=== PATIENT | female | born 1940 | race Caucasian/White ===

== ENCOUNTER 2024-03-13 14:17 | Inpatient (IN) ==
--- NOTE | 2024-03-13 15:06 | Emergency Department Note ---
Impression & Plan Slurring of speech, Atrial fibrillation, permanent, Pneumonia ED Provider Note Provider: Ke Noonan MD DATE OF SERVICE: 03/13/2024 CHIEF COMPLAINT: Referred for [facility], unsteady, falls, slurred speech HISTORY OF PRESENT ILLNESS: Patient is a 83-year-old female history of A-fib with Watchman device in 2019, CKD, and diabetes on insulin presenting here via ambulance for [facility]. Patient states since February 24 she has been unsteady at times and has had some falls. Fell February 24 has had a fall 3-week or so since then and fell today while at [facility] onto her back. Denies striking her loss conscious. Denies head pain. Reports pain in the mid upper back region. Maybe a little bit of tingling in the legs but denies numbness or tingling in the arms or face. States he went to bed 9 PM last night well. Woke around 7:30 AM this morning and states she felt her speech was off and slurring words. Daughter also noticed. Has been having some back pain of the falls and with a new speech change went to [facility] for evaluation. Did have breakfast as well. Earlier today. No nausea vomiting, abdominal pain, chest pain, shortness of breath related. Denies fever or significant cough or cold symptoms. States right now maybe her speech is just ever so slightly off. Is on baby aspirin. For [facility] they are concerned she might of had a stroke and sent her here for evaluation. Daughter later arrived and confirms the majority of the story. Patient was did have a fall overnight had to pull her self. Daughter noted this morning that her speech was slurred and states it still seems somewhat slurred to her. PAST MEDICAL HISTORY: As noted above MEDICATIONS: Reviewed home medications SOCIAL HISTORY: Staying with daughter locally at this time PHYSICAL EXAM: GENERAL: alert and oriented in no acute distress on stretcher Head: normocephalic and atraumatic EYES: No injection, discharge or icterus. PERRL, EOMI. NECK: Trachea midline. Supple. ENT: Mucous membranes pink and moist. LUNGS: Airway patent. No retractions. Breath sounds clear anteriorly HEART: Irregular bradycardic rate and rhythm. No chest wall tenderness ABDOMEN: Soft and non-tender, without guarding or rebound. BACK: No midline tenderness of the lumbar spine or step-off. Some slight bilateral paraspinal mid thoracic tenderness. No significant contusions or crepitus appreciable. SKIN: Acyanotic, warm, dry, without rashes EXTREMITIES: Without swelling, tenderness or deformity NEUROLOGICAL: No focal deficits. No aphasia. No facial droop and tongue midline. Does have some mild slurred speech. Normal strength and tone in the extremities. Sensation to gross touch normal. EK bpm what appears to be slow A-fib. No clear acute ST segment elevation with some nonspecific T wave changes and QTc of 414. CONTINUOUS CARDIAC MONITORING: was ordered and showed a heart rate of 30s to 50s bpm in atrial fibrillation GCS 15. Patient's laboratory studies and imaging reviewed. Differential includes Infection, dehydration, metabolic abnormality, hypo/hyperglycemia, electrolyte disturbance, anemia, hypoxia, cardiac sources, intracerebral event/neurologic, traumatic injury, spinal pathology/infection/cauda equina, as well as other pathologies. IMPRESSION/MEDICAL DECISION MAKING: Patient well-appearing moving all extremities without facial droop here upon arrival. Maybe a little bit of slurred speech. Patient outside the window for thrombolytic as is been approximately 18 hours since her last known well. EKG shows slow A-fib and the patient states she has a history of similar. Denies syncope or fainting. Not hypotensive. Blood work sent. Do question she may have had a CVA. Question of the could be possible occult trauma as well she has had some falls recently. Reports some mid upper back pain. In addition to CT of the head and CT angiograms to look for any possible vascular abnormality or stroke or head bleed, will obtain CT of the chest abdomen pelvis to look for any possible occult rib or spinal fractures. Able to do straight leg raise okay and gross sensation intact lower extremities and I doubt cauda equina. Blood work here is minimal anemia hemoglobin 9.3. No significant cytosis. Normal platelet count. No significant acute renal dysfunction or electrolyte abnormality noted. CT per radiology shows no acute intracranial hemorrhage or disease process by report. They do note multifocal stenoses at the origin left vertebral artery, bilateral V4 segments, and bilateral cavernous portion of the internal arteries favored to be chronic with a high-grade stenosis of the left MCA likely chronic. Did discuss with telestroke from [facility] who agrees with the plan for an MRI brain but no other acute intervention at this time. CT of the chest and abdomen pelvis per ideology report questions right middle and lower lobe pneumonia without effusion. Possibly some esophagitis. No significant retroperitoneal or traumatic injuries otherwise noted. Discussed with patient this finding. Will cover with ceftriaxone given the concern for pneumonia on the imaging. Has had a cough and some dyspnea on exertion according to daughter. Will bring to the hospital further care with this finding for possible stroke workup. Hospitalist team was consulted and patient agreeable with this plan. Negative COVID test. DIAGNOSIS: Falls, slurred speech/strokelike symptoms, permanent A-fib DISPOSITION: Hospitalist will evaluate Patient was agreeable with this plan. Past Med/Surg History Problem List (Updated 03/13/24 @ 21:15 by Ke Noonan M.D.) Pneumonia (Acute) Slurring of speech (Acute) 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 Mitral regurgitation Atrial fibrillation, permanent (Acute) Abnormal CT scan of lung Mixed hyperlipidemia Benign hypertension with CKD (chronic kidney disease) stage III CKD (chronic kidney disease) stage 3, GFR 30-59 ml/min Uncontrolled type 2 diabetes mellitus with hyperglycemia Medical History (Updated 03/13/24 @ 21:15 by Ke Noonan M.D.) Foot pain Dyspnea Pleural effusion Atrial fibrillation Surgical History No significant past surgical history Family History Other Family history non-contributory Social History Smoking Status: Never smoker Hx Alcohol Use: No Hx Substance Use: No Preferred Language: Citizen Of [place] Communication Ability: Effective Cleat Layer Required: No Beliefs That Will Affect Care: None Current Living Situation: Spouse Feels Safe at Home: Yes Safety Concerns: Feels Safe At This Time Assistive Devices: None Allergies Allergies Allergy/AdvReac Type Severity Reaction Status Date / Time ibuprofen Allergy Intermediate HANDS GO Verified 01/21/24 13:02 NUMB Penicillins Allergy Intermediate Rash Verified 01/21/24 13:02 Sulfa (Sulfonamide Allergy Unknown HAPPENED Verified 01/21/24 13:02 Antibiotics) A CHILD azithromycin AdvReac Mild Gastrointestinal Verified 01/21/24 13:02 Upset colestipol [From Colestid] AdvReac Mild "Couldn't Verified 01/21/24 13:02 Tolerate" doxycycline AdvReac Mild Gastrointestinal Verified 01/21/24 13:02 Upset ezetimibe [From Zetia] AdvReac Mild Gastrointestinal Verified 01/21/24 13:02 Upset terazosin [From Hytrin] AdvReac Mild Urinary Verified 01/21/24 13:02 Incontinence Home Meds Home Medications Medication Instructions Recorded Confirmed acetaminophen 500 mg tablet 500 - 1,000 mg PO Q6H PRN Pain 02/12/19 01/21/24 (Tylenol Extra Strength) aspirin 81 mg tablet,delayed 81 mg PO DAILY 02/01/21 01/21/24 release cholecalciferol (vitamin D3) PO DAILY 07/12/21 01/21/24 ascorbate calcium (vitamin C) 500 250 mg PO DAILY 09/12/21 01/21/24 mg tablet polaprezinc (zinc carnosine) PO BID 09/12/21 01/21/24 blood sugar diagnostic (Contour 11/09/22 01/21/24 Test Strips) pen needle, diabetic 32 gauge x 11/09/22 01/21/24/32" (BD Ultra-Fine Mery Pen Needle) Previous Rx's Medication Instructions Recorded omega-3 fatty acids-fish oil 340 1 cap PO BID #60 caps 02/01/21 mg-1,000 mg capsule (Fish Oil) flash glucose scanning reader #1 ea 06/27/21 (FreeStyle Samantha 2 [place]) losartan 100 mg tablet 100 mg PO DAILY #90 tabs 04/01/23 insulin glargine 100 unit/mL (3 40 unit (0.4 mL) subcut QPM #45 mL 09/26/23 mL) subcutaneous pen (Lantus Solostar U-100 Insulin) flash glucose sensor (FreeStyle #2 ea 11/18/23 Samantha 2 Sensor kit) insulin lispro 100 unit/mL 32 unit (0.32 mL) subcut DAILY #15 01/29/24 subcutaneous pen (Humalog KwikPen mL (U-100) Insulin) Results & Data (ED) Vital Signs Vital Signs - 24 hr 03/13/24 14:34 03/13/24 14:34 03/13/24 14:34 Temperature 36.9 C Temperature Source Oral Pulse Rate 42 L Pulse Rate [Apical] 42 L Pulse Rate from SpO2 Sensor Pulse Rhythm Regular Pulse Rhythm [Apical] Regular Pulse Strength Normal Pulse Strength [Apical] Normal Respiratory Rate 17 17 Respiratory Effort / Characteristics Non-Labored Non-Labored Respiratory Depth Normal Normal Respiratory Pattern Regular Regular Blood Pressure 197/61 H Blood Pressure [Right Arm] 197/61 H Blood Pressure Mean 106 Blood Pressure Mean [Right Arm] 106 Blood Pressure Position [Right Arm] Lying Pulse Oximetry 98 98 Oxygen Delivery Method Room Air Room Air Room Air Sepsis Recent Fever Within 48 Hours No Sepsis New/Unexplained Change in Mental Status No Sepsis Action Taken by Nursing No Action Required 03/13/24 14:38 03/13/24 15:27 03/13/24 16:42 Temperature Temperature Source Pulse Rate 42 L 43 L 45 L Pulse Rate [Apical] Pulse Rate from SpO2 Sensor 41 L 44 L Pulse Rhythm Pulse Rhythm [Apical] Pulse Strength Pulse Strength [Apical] Respiratory Rate 18 18 Respiratory Effort / Characteristics Respiratory Depth Respiratory Pattern Blood Pressure Blood Pressure [Right Arm] Blood Pressure Mean Blood Pressure Mean [Right Arm] Blood Pressure Position [Right Arm] Pulse Oximetry 100 98 Oxygen Delivery Method Room Air Sepsis Recent Fever Within 48 Hours Sepsis New/Unexplained Change in Mental Status Sepsis Action Taken by Nursing 03/13/24 17:12 Temperature Temperature Source Pulse Rate 53 L Pulse Rate [Apical] Pulse Rate from SpO2 Sensor 52 L Pulse Rhythm Pulse Rhythm [Apical] Pulse Strength Pulse Strength [Apical] Respiratory Rate 24 Respiratory Effort / Characteristics Respiratory Depth Respiratory Pattern Blood Pressure 122/91 Blood Pressure [Right Arm] Blood Pressure Mean 101 Blood Pressure Mean [Right Arm] Blood Pressure Position [Right Arm] Pulse Oximetry 98 Oxygen Delivery Method Room Air Sepsis Recent Fever Within 48 Hours Sepsis New/Unexplained Change in Mental Status Sepsis Action Taken by Nursing Laboratory Data 03/13/24 Unknown 03/13/24 Unknown Lab Results 03/13/24 03/13/24 03/13/24 Range/Units 15:18 16:31 17:05 POC Hgb 11.6 L (12.0-16.0) g/dl POC Hct 34 L (37-47) % POC Sodium 143 (135-144) mmol/L POC Potassium 3.5 (3.3-5.0) mmol/L Potassium 3.8 (3.5-5.1) mmol/L POC Chloride 109 (101-112) mmol/L POC Total CO2 22 L (24-31) mmol/L POC Anion Gap 16.0 (16-25) mmol/L POC BUN 27 H (7-18) mg/dl POC Creatinine 1.2 (0.6-1.3) mg/dl POC Glucose (other) 68 L* (70-99) mg/dl POC Ioniz Calcium Snehal 1.20 (1.12-1.32) mmol/l AST 77 H (13-39) U/L Troponin I High Sens 21.0 H (0-14) pg/ml SARS-CoV-2, RNA, NAAT NEGATIVE (NEGATIVE) Administered Medications Labetalol HCl (Labetalol Hcl Iv 5 Mg/Ml 20ml) 10 mg IV Q30M PRN PRN Reason: SBP >220 or DBP >120 mmHg Stop: 04/12/24 19:59 Last Admin: 03/13/24 20:47 Dose: 10 mg Documented By: MMD Discontinued Medications Ceftriaxone Sodium (Rocephin) 2,000 mg in 50 mls @ 100 mls/hr IV NOW STA Stop: 03/13/24 17:23 Last Infusion: 03/13/24 18:26 Dose: Infused Documented By: Admin: 03/13/24 17:36 Dose: 100 mls/hr Documented By: [facility] Cefepime HCl (Maxipime 2000mg) 2,000 mg in 20 mls @ 5 mls/min IV NOW STA; Protocol Stop: 03/13/24 17:30 Last Admin: 03/13/24 18:03 Dose: Not Given Documented By: [facility] Vancomycin HCl 1,250 mg/ (Sodium Chloride) 525 mls @ 200 mls/hr IV NOW ONE Stop: 03/13/24 20:04 Last Admin: 03/13/24 18:03 Dose: Not Given Documented By: [facility] Ioversol (Optiray 320 125ml) 94 ml IV ONCE ONE Stop: 03/13/24 15:45 Last Admin: 03/13/24 15:45 Dose: 94 ml Documented By: EDK Imaging Data Radiologist's Impression: Abdomen/Pelvis CT 03/13/24 14:57 CT OF THE ABDOMEN AND PELVIS WITH CONTRAST CLINICAL HISTORY: Weak, falls, back pain. COMPARISON STUDY: Renal ultrasound March 22, 2022. TECHNIQUE: Following IV administration of 94 mL of Optiray, axial images of the abdomen and pelvis were obtained from the lung bases to the proximal femurs. Images were reviewed in the axial, sagittal, and coronal planes. IV contrast was administered without complication. Automated exposure control was utilized for the study. A dose lowering technique was utilized adhering to the principles of ALARA. FINDINGS: Alveolar opacities within the right middle lobe and right lower lobe are present. No hemoperitoneum or pneumoperitoneum is present. There is no evidence for hepatic injury to the liver, spleen, adrenal glands, kidneys or pancreas. There is no biliary or pancreatic ductal dilatation. There are gallstones within the gallbladder. No evidence for acute cholecystitis. Low- attenuation bilateral renal lesions favor cysts. Hypodensities within the right renal collecting system favor small calculi although excreted contrast could appear similar. There is no hydronephrosis. There are no ureteral calculi. The caliber and wall thickness of small and large bowel are normal. The bladder is distended. No acute lumbar spine, pelvic or hip fractures are identified. IMPRESSION: 1. No acute traumatic findings within the abdomen or pelvis. 2. Right nephrolithiasis. No ureteral calculi. No hydronephrosis. 3. Cholelithiasis. No evidence for acute cholecystitis. ACT 112: Negative or not required by law. Electronically signed by: Acosta Valdez M.D. 03/13/2024 4:[address] 03/13/24 14:[address] WITH CONTRAST HISTORY: Acute chest trauma status post fall weak , falls back pain, flurred speech TECHNIQUE: Multiaxial CT images of the chest were performed following the IV administration of 94 cc of Optiray. A dose lowering technique was utilized adhering to the principles of ALARA. COMPARISON: CT abdomen and pelvis of same day, chest CT 04/24/2021, 04/06/2021 FINDINGS: Unremarkable thyroid. Mildly enlarged mediastinal lymph nodes measuring up to 11 mm of increase in size from prior. Mild cardiomegaly. No pericardial effusion. Left atrial exclusion device. Extensive coronary artery calcifications. Atherosclerosis of the aorta. 50% stenosis at the origin of the left subclavian artery has progressed. Dilation of the pulmonary artery suggestive of pulmonary arterial hypertension. History of the right rotator cuff musculature compatible with chronic insertional tendon tearing. Otherwise unremarkable soft tissues. No pneumothorax, pleural effusion or overt pulmonary edema. Patchy groundglass and consolidative opacity within the right middle and lower lobes. Mild intralobular septal thickening. Central airways are patent. Nonspecific mid to distal esophageal wall thickening. No acute fracture. Subcentimeter loose bodies of the right glenohumeral joint. IMPRESSION: 1. Mild patchy right middle and lower lobe opacities compatible with bronchopneumonia. 2. Nonspecific mediastinal lymphadenopathy. Attention on follow-up recommended. 3. No pleural effusion. 4. Nonspecific mid to distal esophageal wall thickening. Correlate clinically to exclude esophagitis. ACT 112: Negative or not required by law. Electronically signed by: Casa Tee M.D. 03/13/2024 4:[address] 03/13/24 14:57 CT angio neck with con, CT head/brain wo con, CT angio head w con CLINICAL HISTORY: neuro deficit, acute stroke suspected TECHNIQUE: Contiguous axial CT images of the head were acquired from the base of the skull to the vertex without intravenous contrast administration. CT angiography of the head and neck was performed following intravenous administration of iodinated contrast. Coronal and sagittal MIPS were obtained from the axial data set and were submitted for review. Automated dose lowering techniques and/or adjustment according to patient size were utilized for this examination. All measurements were calculated based on NASCET criteria. CT DOSE: 2371.19 mGy.cm Comparison: None available at the time of this dictation. FINDINGS: CT head: Areas of decreased attenuation are present in the periventricular and subcortical white matter bilaterally consistent with small vessel ischemic disease. Generalized cerebral atrophy with commensurate enlargement of the ventricles, sulci, and cisterns is also present. There is no acute intracranial hemorrhage or evidence of acute territorial infarction. No shift of the midline structures, mass effect, or extra-axial abnormalities are shown. Atherosclerotic calcifications are present in the intracranial segments of the internal carotid arteries. Mediastinal lymph nodes measure up to 13 mm. CTA Neck: A 3 vessel aortic arch is shown. There is no significant atherosclerotic plaque in the aortic arch or the origins of the innominate, left common carotid, and left subclavian arteries. There is stenosis of proximal the 75% at the origin of the left vertebral artery as well as greater than 75% stenosis of the V4 segment. There is approximately 75% stenosis of the V4 segment the left. There is greater than 75% stenosis of the bilateral internal carotid arteries at the cavernous segment. The left vertebral artery is dominant. CTA Head: The anterior and posterior cerebral circulations are patent. There is high-grade stenosis of the origin of the left middle cerebral artery. There is likely nonhemodynamically significant stenosis of the left posterior cerebral artery. IMPRESSION: 1. No acute intracranial hemorrhage, evidence of acute territorial infarction, or other acute intracranial disease process. 2. Multifocal hemodynamically significant stenoses at the origin of the left vertebral artery, bilateral V4 segments, and bilateral cavernous portion of the internal carotid arteries. These are favored to be chronic. 3. High-grade stenosis of the origin of the left middle cerebral artery. This is likely chronic. Assessment of stenosis of the internal carotid arteries is based on NASCET criteria. ACT 112: Negative or not required by law. Electronically signed by: Dayron Hannah M.D. 03/13/2024 4:03 PM Head CTA 03/13/24 14:57 CT angio neck with con, CT head/brain wo con, CT angio head w con CLINICAL HISTORY: neuro deficit, acute stroke suspected TECHNIQUE: Contiguous axial CT images of the head were acquired from the base of the skull to the vertex without intravenous contrast administration. CT angiography of the head and neck was performed following intravenous administration of iodinated contrast. Coronal and sagittal MIPS were obtained from the axial data set and were submitted for review. Automated dose lowering techniques and/or adjustment according to patient size were utilized for this examination. All measurements were calculated based on NASCET criteria. CT DOSE: 2371.19 mGy.cm Comparison: None available at the time of this dictation. FINDINGS: CT head: Areas of decreased attenuation are present in the periventricular and subcortical white matter bilaterally consistent with small vessel ischemic disease. Generalized cerebral atrophy with commensurate enlargement of the ventricles, sulci, and cisterns is also present. There is no acute intracranial hemorrhage or evidence of acute territorial infarction. No shift of the midline structures, mass effect, or extra-axial abnormalities are shown. Atherosclerotic calcifications are present in the intracranial segments of the internal carotid arteries. Mediastinal lymph nodes measure up to 13 mm. CTA Neck: A 3 vessel aortic arch is shown. There is no significant atherosclerotic plaque in the aortic arch or the origins of the innominate, left common carotid, and left subclavian arteries. There is stenosis of proximal the 75% at the origin of the left vertebral artery as well as greater than 75% stenosis of the V4 segment. There is approximately 75% stenosis of the V4 segment the left. There is greater than 75% stenosis of the bilateral internal carotid arteries at the cavernous segment. The left vertebral artery is dominant. CTA Head: The anterior and posterior cerebral circulations are patent. There is high-grade stenosis of the origin of the left middle cerebral artery. There is likely nonhemodynamically significant stenosis of the left posterior cerebral artery. IMPRESSION: 1. No acute intracranial hemorrhage, evidence of acute territorial infarction, or other acute intracranial disease process. 2. Multifocal hemodynamically significant stenoses at the origin of the left vertebral artery, bilateral V4 segments, and bilateral cavernous portion of the internal carotid arteries. These are favored to be chronic. 3. High-grade stenosis of the origin of the left middle cerebral artery. This is likely chronic. Assessment of stenosis of the internal carotid arteries is based on NASCET criteria. ACT 112: Negative or not required by law. Electronically signed by: Dayron Hannah M.D. 03/13/2024 4:03 PM Neck CTA 03/13/24 14:57 CT angio neck with con, CT head/brain wo con, CT angio head w con CLINICAL HISTORY: neuro deficit, acute stroke suspected TECHNIQUE: Contiguous axial CT images of the head were acquired from the base of the skull to the vertex without intravenous contrast administration. CT angiography of the head and neck was performed following intravenous administration of iodinated contrast. Coronal and sagittal MIPS were obtained from the axial data set and were submitted for review. Automated dose lowering techniques and/or adjustment according to patient size were utilized for this examination. All measurements were calculated based on NASCET criteria. CT DOSE: 2371.19 mGy.cm Comparison: None available at the time of this dictation. FINDINGS: CT head: Areas of decreased attenuation are present in the periventricular and subcortical white matter bilaterally consistent with small vessel ischemic disease. Generalized cerebral atrophy with commensurate enlargement of the ventricles, sulci, and cisterns is also present. There is no acute intracranial hemorrhage or evidence of acute territorial infarction. No shift of the midline structures, mass effect, or extra-axial abnormalities are shown. Atherosclerotic calcifications are present in the intracranial segments of the internal carotid arteries. Mediastinal lymph nodes measure up to 13 mm. CTA Neck: A 3 vessel aortic arch is shown. There is no significant atherosclerotic plaque in the aortic arch or the origins of the innominate, left common carotid, and left subclavian arteries. There is stenosis of proximal the 75% at the origin of the left vertebral artery as well as greater than 75% stenosis of the V4 segment. There is approximately 75% stenosis of the V4 segment the left. There is greater than 75% stenosis of the bilateral internal carotid arteries at the cavernous segment. The left vertebral artery is dominant. CTA Head: The anterior and posterior cerebral circulations are patent. There is high-grade stenosis of the origin of the left middle cerebral artery. There is likely nonhemodynamically significant stenosis of the left posterior cerebral artery. IMPRESSION: 1. No acute intracranial hemorrhage, evidence of acute territorial infarction, or other acute intracranial disease process. 2. Multifocal hemodynamically significant stenoses at the origin of the left vertebral artery, bilateral V4 segments, and bilateral cavernous portion of the internal carotid arteries. These are favored to be chronic. 3. High-grade stenosis of the origin of the left middle cerebral artery. This is likely chronic. Assessment of stenosis of the internal carotid arteries is based on NASCET criteria. ACT 112: Negative or not required by law. Electronically signed by: Dayron Hannah M.D. 03/13/2024 4:03 PM Discharge Plan Visit Data Chief Complaint: Neuro Symptoms/Deficit Stated Complaint: GLF, speech changes ED Provider: Ke Noonan Discharge Problem: Slurring of speech, Atrial fibrillation, permanent, Pneumonia Patient Disposition: Admitted As Inpatient Discharge Instructions Interventions: ED Discharge Assessment Last Done: 03/13/24 18:17
[2024-03-13 15:40] LABS: iSTAT Creatinine 1.2 mg/dl (0.6-1.3); iSTAT Hemoglobin 11.6 g/dl (12.0-16.0); iSTAT Ionized Calcium 1.2 mmol/l (1.12-1.32); iSTAT Potassium 3.5 mmol/L (3.3-5.0)
[2024-03-13 15:43] LABS: Basophils # (auto) 0.04 K/uL (0.00-0.20); Basophils % (auto) 0.6 %; Eosinophils # (auto) 0.31 K/uL (0.00-0.50); Eosinophils % (auto) 4.7 %; Hemoglobin 11.3 g/dl (12.0-16.0); Immature Granulocytes # (auto) 0.03 K/uL (0.01-0.20); Immature Granulocytes % (auto) 0.5 %; Lymphocytes # (auto) 1.25 K/uL (1.20-3.40); Lymphocytes % (auto) 18.8 %; Mean Corpuscular Hemoglobin 27.8 pg (25.0-34.0); Mean Corpuscular Hgb Conc 33.2 g/dL (32.0-36.0); Mean Corpuscular Volume 83.5 fL (80.0-100.0); Mean Platelet Volume 9.9 fL (9.4-12.4); Monocytes # (auto) 0.61 K/uL (0.11-0.59); Monocytes % (auto) 9.2 %; Neutrophils % (auto) 66.2 %; Platelet Count 233 K/uL (130-400); RDW Coefficient of Variation 13.5 % (11.5-14.5); RDW Standard Deviation 41.1 fL (36.4-46.3); Red Blood Count 4.07 M/uL (4.20-5.40); White Blood Count 6.64 K/ul (4.8-10.8)
[2024-03-13] MEDS: OPTIRAY 320 125ml IV ONE (15:45)
[2024-03-13 15:57] LABS: INR 1.1 (0.9-1.1); Partial Thromboplastin Time 26 Seconds (21-31); Prothrombin Time 11.5 Seconds (9.0-12.0)
--- NOTE | 2024-03-13 16:04 | CT Scan Report ---
CT OF THE ABDOMEN AND PELVIS WITH CONTRAST CLINICAL HISTORY: Weak, falls, back pain. COMPARISON STUDY: Renal ultrasound March 22, 2022. TECHNIQUE: Following IV administration of 94 mL of Optiray, axial images of the abdomen and pelvis we re obtained from the lung bases to the proximal femurs. Images were reviewed in the axial, sagittal, and coronal planes. IV contrast was administered without complication. Automated exposure control wa s utilized for the study. A dose lowering technique was utilized adhering to the principles of ALARA . FINDINGS: Alveolar opacities within the right middle lobe and right lower lobe are present. No hemope ritoneum or pneumoperitoneum is present. There is no evidence for hepatic injury to the liver, spleen , adrenal glands, kidneys or pancreas. There is no biliary or pancreatic ductal dilatation. There are gallstones within the gallbladder. No evidence for acute cholecystitis. Low-attenuation bilateral re nal lesions favor cysts. Hypodensities within the right renal collecting system favor small calculi a lthough excreted contrast could appear similar. There is no hydronephrosis. There are no ureteral milvia culi. The caliber and wall thickness of small and large bowel are normal. The bladder is distended. N o acute lumbar spine, pelvic or hip fractures are identified. IMPRESSION: 1. No acute traumatic findings within the abdomen or pelvis. 2. Right nephrolithiasis. No ureteral calculi. No hydronephrosis. 3. Cholelithiasis. No evidence for acute cholecystitis. ACT 112: Negative or not required by law. Electronically signed by: Acosta Valdez M.D. 03/13/2024 4:02 PM
--- NOTE | 2024-03-13 16:04 | CT Scan Report ---
CHEST CT WITH CONTRAST HISTORY: Acute chest trauma status post fall weak , falls back pain, flurred speech TECHNIQUE: Multiaxial CT images of the chest were performed following the IV administration of 94 cc of Optiray. A dose lowering technique was utilized adhering to the principles of ALARA. COMPARISON: CT abdomen and pelvis of same day, chest CT 04/24/2021, 04/06/2021 FINDINGS: Unremarkable thyroid. Mildly enlarged mediastinal lymph nodes measuring up to 11 mm of incr ease in size from prior. Mild cardiomegaly. No pericardial effusion. Left atrial exclusion device. Ex tensive coronary artery calcifications. Atherosclerosis of the aorta. 50% stenosis at the origin of t he left subclavian artery has progressed. Dilation of the pulmonary artery suggestive of pulmonary ar terial hypertension. History of the right rotator cuff musculature compatible with chronic insertional tendon tearing. Oth erwise unremarkable soft tissues. No pneumothorax, pleural effusion or overt pulmonary edema. Patchy groundglass and consolidative opacity within the right middle and lower lobes. Mild intralobular sept al thickening. Central airways are patent. Nonspecific mid to distal esophageal wall thickening. No a cute fracture. Subcentimeter loose bodies of the right glenohumeral joint. IMPRESSION: 1. Mild patchy right middle and lower lobe opacities compatible with bronchopneumonia. 2. Nonspecific mediastinal lymphadenopathy. Attention on follow-up recommended. 3. No pleural effusion. 4. Nonspecific mid to distal esophageal wall thickening. Correlate clinically to exclude esophagitis. ACT 112: Negative or not required by law. Electronically signed by: Casa Tee M.D. 03/13/2024 4:03 PM
--- NOTE | 2024-03-13 16:05 | CT Scan Report ---
CT angio neck with con, CT head/brain wo con, CT angio head w con CLINICAL HISTORY: neuro deficit, acute stroke suspected TECHNIQUE: Contiguous axial CT images of the head were acquired from the base of the skull to the alo aaron without intravenous contrast administration. CT angiography of the head and neck was performed f ollowing intravenous administration of iodinated contrast. Coronal and sagittal MIPS were obtained fr om the axial data set and were submitted for review. Automated dose lowering techniques and/or adjus tment according to patient size were utilized for this examination. All measurements were calculated based on NASCET criteria. CT DOSE: 2371.19 mGy.cm Comparison: None available at the time of this dictation. FINDINGS: CT head: Areas of decreased attenuation are present in the periventricular and subcortical white jus er bilaterally consistent with small vessel ischemic disease. Generalized cerebral atrophy with comme nsurate enlargement of the ventricles, sulci, and cisterns is also present. There is no acute intracr anial hemorrhage or evidence of acute territorial infarction. No shift of the midline structures, mas s effect, or extra-axial abnormalities are shown. Atherosclerotic calcifications are present in the intracranial segments of the internal carotid arteries. Mediastinal lymph nodes measure up to 13 mm. CTA Neck: A 3 vessel aortic arch is shown. There is no significant atherosclerotic plaque in the aor tic arch or the origins of the innominate, left common carotid, and left subclavian arteries. There is stenosis of proximal the 75% at the origin of the left vertebral artery as well as greater than 75 % stenosis of the V4 segment. There is approximately 75% stenosis of the V4 segment the left. There i s greater than 75% stenosis of the bilateral internal carotid arteries at the cavernous segment. The left vertebral artery is dominant. CTA Head: The anterior and posterior cerebral circulations are patent. There is high-grade stenosis of the origin of the left middle cerebral artery. There is likely nonhemodynamically significant sten osis of the left posterior cerebral artery. IMPRESSION: 1. No acute intracranial hemorrhage, evidence of acute territorial infarction, or other acute intrac ranial disease process. 2. Multifocal hemodynamically significant stenoses at the origin of the left vertebral artery, bilat eral V4 segments, and bilateral cavernous portion of the internal carotid arteries. These are favored to be chronic. 3. High-grade stenosis of the origin of the left middle cerebral artery. This is likely chronic. Assessment of stenosis of the internal carotid arteries is based on NASCET criteria. ACT 112: Negative or not required by law. Electronically signed by: Dayron Hannah M.D. 03/13/2024 4:03 PM
[2024-03-13 16:06] LABS: Alanine Aminotransferase 24 U/L (7-52); Alkaline Phosphatase 88 U/L (34-104); Anion Gap 8 (3-11); BUN Creatinine Ratio 21.9 (10-20); Bilirubin,Total 0.4 mg/dl (0.2-1.0); Blood Urea Nitrogen 25 mg/dl (6-23); Calcium 9.5 mg/dl (8.6-10.3); Carbon Dioxide 24 mmol/L (21-32); Chloride 109 mmol/L (98-107); Glucose 64 mg/dl (70-99(Fasting)); Magnesium 1.7 mg/dl (1.7-2.4); Sodium 141 mmol/L (136-145); Troponin I High Sensitivity 23.1 pg/ml (0-14)
[2024-03-13] MEDS ORDERED: VANCOMYCIN CONSULT ACTIVE PRN (17:27)
--- NOTE | 2024-03-13 17:27 | History & Physical Report ---
Date of Service March 13, 2024 Assessment & Plan (1) Acute CVA (cerebrovascular accident): Plan: Add clopidogrel Continue aspirin NIH scores Allow permissive hypertension, losartan placed on hold, Labetalol PRN for sBP > 220, dBP > 120 TTE with bubble study Lipid panel and HbA1C with AM labs Prior history of statin myopathy Consult neurology (2) Pneumonia: Plan: Initially suspected to have pneumonia base on CT findings however minimal consolidation, normal WBC and procalcitonin and in setting of CVA suspect this is just aspiration pneumonitis due to her recent CVA Duonebs PRN for wheezing (no history of asthma/COPD) Further antibiotics deferred pending clinical course Aspiration precautions SLT consult (3) Slurring of speech: Plan: Not clearly stroke related as mouth is very dry Appears to have resolved irregardless (4) Recurrent falls: Plan: Appears to be a result of loss of balance - PT/OT assessments (5) Atrial fibrillation, permanent: Plan: Not on anticoagulation due to left atrial appendage device Rate controlled without AV rubio blocking agents (6) Uncontrolled type 2 diabetes mellitus with hyperglycemia: Plan: HbA1C 10.2 in August 2023, repeat with AM labs Given reduced appetite, current low normal glucose and inpatient setting will reduce Lantus to 10 units HS (44 units as outpatient) Novolog: --Goal BSG Range: Low 110 mg/dL, High 140 mg/dL --Correction Factor: 45 mg/dL/unit --Carbohydrate ratio = 15 g/unit --BSGs ACHS if eating, q6h if npo Plan VTE Prophylaxis - heparin 5000 units SQ BID Diet - T2DM, heart healthy Disposition - admit to PCU Admission and Anticipated Discharge Date Admission Date: March 13, 2024 History of Present Illness Chief Complaint: Slurred speech Recurrent falls Primary Care Provider: Brad Robles MD Anna Stark is an 83 year old female who presents to the ER with slurred speech. She reports her symptoms really started on February 24 and has been generally feeling not her normal self since then but difficult for her to say what is wrong. She notes she fell on that day and her was there to pick her up. She feels she is falling as she is losing her balance. No chest pain, shortness of breath or dizziness prior to falling. [place] and was transported here by her daughter for her upcoming birthday. Her daughter notes she fell at her house 2 days ago at 4am in the morning but was able to get herself up but fell again at [facility] yesterday. She notes upper right back pain since her initial fall on February 24. She is unclear on the time line but has also been short of breath and wheezing for the last 5 days. She denies any history of asthma, COPD or requiring inhalers in the past. No fever, chills, nasal congestion or sinus pain. Associated mild non productive cough. She denies coughing or choking after eating but had a coughing spell after drinking water from a straw when being seen. She has a very dry mouth on exam and notes this has been present since yesterday but she feels she is eating and drinking normally. No one sided weakness, change in sensation, vision or hearing. Her daughter noticed some slurred, garbled speech this morning which promted visit to [facility] and referral to the ER. Prior to these recent falls she falls 1-2 times a year and uses no aids for ambulation at baseline. She denies any prior stroke or heart attack but has uncontrolled diabetes, peripheral artery disease and hypertension. Allergies Allergy/AdvReac Type Severity Reaction Status Date / Time ibuprofen Allergy Intermediate HANDS GO Verified 01/21/24 13:02 NUMB Penicillins Allergy Intermediate Rash Verified 01/21/24 13:02 Sulfa (Sulfonamide Allergy Unknown HAPPENED Verified 01/21/24 13:02 Antibiotics) A CHILD azithromycin AdvReac Mild Gastrointestinal Verified 01/21/24 13:02 Upset colestipol [From Colestid] AdvReac Mild "Couldn't Verified 01/21/24 13:02 Tolerate" doxycycline AdvReac Mild Gastrointestinal Verified 01/21/24 13:02 Upset ezetimibe [From Zetia] AdvReac Mild Gastrointestinal Verified 01/21/24 13:02 Upset terazosin [From Hytrin] AdvReac Mild Urinary Verified 01/21/24 13:02 Incontinence Home Medications Medication Instructions Recorded Confirmed Type acetaminophen 500 mg tablet 500 - 1,000 mg PO Q6H PRN Pain 02/12/19 03/13/24 History (Tylenol Extra Strength) aspirin 81 mg tablet,delayed 81 mg PO DAILY 02/01/21 03/13/24 History release omega-3 fatty acids-fish oil 340 1 cap PO BID #60 caps 02/01/21 03/13/24 Rx mg-1,000 mg capsule (Fish Oil) flash glucose scanning reader #1 ea 06/27/21 01/21/24 Rx (FreeStyle Samantha 2 [place]) cholecalciferol (vitamin D3) 1,000 unit PO DAILY 07/12/21 03/13/24 History ascorbate calcium (vitamin C) 500 250 mg PO DAILY 09/12/21 03/13/24 History mg tablet polaprezinc (zinc carnosine) 1 tab PO BID 09/12/21 03/13/24 History blood sugar diagnostic (Contour 11/09/22 01/21/24 History Test Strips) pen needle, diabetic 32 gauge x 11/09/22 01/21/24 History 32" (BD Ultra-Fine Mery Pen Needle) losartan 100 mg tablet 100 mg PO DAILY #90 tabs 04/01/23 03/13/24 Rx flash glucose sensor (FreeStyle #2 ea 11/18/23 01/21/24 Rx Samantha 2 Sensor kit) insulin glargine 100 unit/mL (3 44 unit subcut QPM 03/13/24 03/13/24 History mL) subcutaneous pen (Lantus Solostar U-100 Insulin) insulin lispro 100 unit/mL 20 unit subcut BID 03/13/24 03/13/24 History subcutaneous pen (Humalog KwikPen (U-100) Insulin) Past Med/Surg History Problem List (Updated 03/14/24 @ 06:34 by Michele Kwan MD) Recurrent falls Acute CVA (cerebrovascular accident) Pneumonia (Acute) Slurring of speech (Acute) 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 Mitral regurgitation Atrial fibrillation, permanent (Acute) Abnormal CT scan of lung Mixed hyperlipidemia Benign hypertension with CKD (chronic kidney disease) stage III CKD (chronic kidney disease) stage 3, GFR 30-59 ml/min Uncontrolled type 2 diabetes mellitus with hyperglycemia Medical History (Updated 03/14/24 @ 06:34 by Michele Kwan MD) Foot pain Dyspnea Pleural effusion Atrial fibrillation Surgical History No significant past surgical history Family History Other Family history non-contributory Social History Smoking Status: Never smoker Hx Alcohol Use: No Hx Substance Use: No Preferred Language: Greek Communication Ability: Effective 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 Beliefs That Will Affect Care: None Current Living Situation: Spouse Feels Safe at Home: Yes Safety Concerns: Feels Safe At This Time Assistive Devices: None Review of Systems Review of Systems: All systems reviewed & are unremarkable except as noted in HPI & below Physical Exam Constitutional: WD/WN, vitals as above Eyes: PERRL, conjunctivae normal, anicteric sclerae ENMT: Mouth: + dry oral mucous membranes Respiratory: normal respiratory effort; no respiratory distress Auscultation: + crackles (coarse bibasal) and + wheezes (mild expiratory); breath sounds present, no diminished lung sounds, no rales and no rhonchi Cardiovascular: Rate/Rhythm: regular rate and + irregularly irregular Heart Sounds: no murmur Extremities: normal capillary refill; no calf tenderness and no pedal edema Gastrointestinal (Abdomen): normal bowel sounds, soft, nontender, no hepatosplenomegaly Musculoskeletal: no cyanosis or clubbing, extremities motor strength 5/5 Skin: no rashes, warm and dry Neurologic: moves all extremities and awake; no focal motor deficits and not confused Speech / Cognition: normal speech Motor/Sensory: + pronator drift (right, notable rotator cuff pathology on imaging this side); no tremor, normal movement and no sensory deficit Cranial Nerves: PERRL, EOM intact bilaterally, normal facial strength, tongue midline, able to rotate head bilaterally, able to elevate shoulders bilaterally, no nystagmus and symmetric p alate elevation Coordination: normal [id number] test (equal b/l) Psychiatric: A+Ox3, euthymic affect Genitourinary: no CVA tenderness Results & Data Results & Data Vital Signs (Past 12 Hours) Vital Signs Temp Pulse Pulse Resp BP BP Pulse Ox 03/13/24 16:42 45 L 18 98 03/13/24 15:27 43 L 18 100 03/13/24 14:38 42 L 03/13/24 14:34 42 L 17 197/61 H 98 03/13/24 14:34 03/13/24 14:34 36.9 C 42 L 17 197/61 H 98 O2 Del Method 03/13/24 16:42 03/13/24 15:27 Room Air 03/13/24 14:38 03/13/24 14:34 Room Air 03/13/24 14:34 Room Air 03/13/24 14:34 Room Air Laboratory Results Abnormal lab results 03/13/24 03/13/24 Range/Units 15:18 Unknown RBC 4.07 L (4.20-5.40) M/uL Hgb 11.3 L (12.0-16.0) g/dl POC Hgb 11.6 L (12.0-16.0) g/dl Hct 34.0 L (37.0-47.0) % POC Hct 34 L (37-47) % Sharp # (Auto) 0.61 H (0.11-0.59) K/uL Chloride 109 H (98-107) mmol/L POC Total CO2 22 L (24-31) mmol/L POC BUN 27 H (7-18) mg/dl BUN 25 H (6-23) mg/dl BUN/Creatinine Ratio 21.9 H (10-20) Glucose 64 L (70-99(Fasting)) mg/dl POC Glucose (other) 68 L* (70-99) mg/dl Troponin I High Sens 23.1 H (0-14) pg/ml Diagnostic Findings CT angio neck with con, CT head/brain wo con, CT angio head w con CLINICAL HISTORY: neuro deficit, acute stroke suspected TECHNIQUE: Contiguous axial CT images of the head were acquired from the base of the skull to the vertex without intravenous contrast administration. CT angiography of the head and neck was performed following intravenous administration of iodinated contrast. Coronal and sagittal MIPS were obtained from the axial data set and were submitted for review. Automated dose lowering techniques and/or adjustment according to patient size were utilized for this examination. All measurements were calculated based on NASCET criteria. CT DOSE: 2371.19 mGy.cm Comparison: None available at the time of this dictation. FINDINGS: CT head: Areas of decreased attenuation are present in the periventricular and subcortical white matter bilaterally consistent with small vessel ischemic disease. Generalized cerebral atrophy with commensurate enlargement of the ventricles, sulci, and cisterns is also present. There is no acute intracranial hemorrhage or evidence of acute territorial infarction. No shift of the midline structures, mass effect, or extra-axial abnormalities are shown. Atherosclerotic calcifications are present in the intracranial segments of the internal carotid arteries. Mediastinal lymph nodes measure up to 13 mm. CTA Neck: A 3 vessel aortic arch is shown. There is no significant atherosclerotic plaque in the aortic arch or the origins of the innominate, left common carotid, and left subclavian arteries. There is stenosis of proximal the 75% at the origin of the left vertebral artery as well as greater than 75% stenosis of the V4 segment. There is approximately 75% stenosis of the V4 segment the left. There is greater than 75% stenosis of the bilateral internal carotid arteries at the cavernous segment. The left vertebral artery is dominant. CTA Head: The anterior and posterior cerebral circulations are patent. There is high-grade stenosis of the origin of the left middle cerebral artery. There is likely nonhemodynamically significant stenosis of the left posterior cerebral artery. IMPRESSION: 1. No acute intracranial hemorrhage, evidence of acute territorial infarction, or other acute intracranial disease process. 2. Multifocal hemodynamically significant stenoses at the origin of the left vertebral artery, bilateral V4 segments, and bilateral cavernous portion of the internal carotid arteries. These are favored to be chronic. 3. High-grade stenosis of the origin of the left middle cerebral artery. This is likely chronic. CHEST CT WITH CONTRAST HISTORY: Acute chest trauma status post fall weak , falls back pain, flurred speech TECHNIQUE: Multiaxial CT images of the chest were performed following the IV administration of 94 cc of Optiray. A dose lowering technique was utilized adhering to the principles of ALARA. COMPARISON: CT abdomen and pelvis of same day, chest CT 04/24/2021, 04/06/2021 FINDINGS: Unremarkable thyroid. Mildly enlarged mediastinal lymph nodes measuring up to 11 mm of increase in size from prior. Mild cardiomegaly. No pericardial effusion. Left atrial exclusion device. Extensive coronary artery calcifications. Atherosclerosis of the aorta. 50% stenosis at the origin of the left subclavian artery has progressed. Dilation of the pulmonary artery s uggestive of pulmonary arterial hypertension. History of the right rotator cuff musculature compatible with chronic insertional tendon tearing. Otherwise unremarkable soft tissues. No pneumothorax, pleural effusion or overt pulmonary edema. Patchy groundglass and consolidative opacity within the right middle and lower lobes. Mild intralobular septal thickening. Central airways are patent. Nonspecific mid to distal esophageal wall thickening. No acute fracture. Subcentimeter loose bodies of the right glenohumeral joint. IMPRESSION: 1. Mild patchy right middle and lower lobe opacities compatible with bronchopneumonia. 2. Nonspecific mediastinal lymphadenopathy. Attention on follow-up recommended. 3. No pleural effusion. 4. Nonspecific mid to distal esophageal wall thickening. Correlate clinically to exclude esophagitis. CT OF THE ABDOMEN AND PELVIS WITH CONTRAST CLINICAL HISTORY: Weak, falls, back pain. COMPARISON STUDY: Renal ultrasound March 22, 2022. TECHNIQUE: Following IV administration of 94 mL of Optiray, axial images of the abdomen and pelvis were obtained from the lung bases to the proximal femurs. Images were reviewed in the axial, sagittal, and coronal planes. IV contrast was administered without complication. Automated exposure control was utilized for the study. A dose lowering technique was utilized adhering to the principles of ALARA. FINDINGS: Alveolar opacities within the right middle lobe and right lower lobe are present. No hemoperitoneum or pneumoperitoneum is present. There is no evidence for hepatic injury to the liver, spleen, adrenal glands, kidneys or pancreas. There is no biliary or pancreatic ductal dilatation. There are gallstones within the gallbladder. No evidence for acute cholecystitis. Low- attenuation bilateral renal lesions favor cysts. Hypodensities within the right renal collecting system favor small calculi although excreted contrast could appear similar. There is no hydronephrosis. There are no ureteral calculi. The caliber and wall thickness of small and large bowel are normal. The bladder is distended. No acute lumbar spine, pelvic or hip fractures are identified. IMPRESSION: 1. No acute traumatic findings within the abdomen or pelvis. 2. Right nephrolithiasis. No ureteral calculi. No hydronephrosis. 3. Cholelithiasis. No evidence for acute cholecystitis. Medications Administered ER Medications Given: Ceftriaxone 2g IV ECG Rate (beats per minute): 46 Rhythm: junctional Findings: no acute ischemic change Comparison ECG Date: from (April 06, 2021) Change: the following changes noted (junctional pacemaker replaced a. fib) Code Status & VTE Plan Code Status Full VTE Prophylaxis Plan VTE Prophylaxis will be ordered: Yes PG Care Time/CCT Total # of Minutes Spent Total Time Spent with Patient: Total time spent is greater than 50% in coordination of care (as documented) at patient's floor/unit and/or counseling patient: Coding Level of Care Code 95271 INT INP/OBS CARE 3/75MIN Diagnoses Acute CVA (cerebrovascular accident) I63.9 Pneumonia J18.9 Slurring of speech R47.81 Recurrent falls R29.6 Atrial fibrillation, permanent I48.21 Uncontrolled type 2 diabetes mellitus with hyperglycemia E11.65
[2024-03-13] MEDS: cefTRIAXone SODIUM 2,000 MG/50 ML BAG IV STA (17:36)
[2024-03-13 18:00] LABS: Appearance Urine Clear (Clear); Bacteria Urine Automated None Seen (None Seen); Bilirubin Urine Negative (Negative); Blood Urine Negative (Negative); Cast Urine Automated 0-2 /lpf (0-2); Color Urine Yellow; Epithelial Cell Urine Auto 0-2 /hpf (0-2); Glucose Urine UA Negative (Negative); Ketones Urine Negative (Negative); Leukocyte Esterase Urine Negative (Negative); Nitrite Urine Negative (Negative); Protein Urine 2+ (Negative); RBC Urine Automated 0-2 /hpf (0-2); Specific Gravity Urine > 1.045 (1.000-1.030); Urobilinogen Urine Negative (Negative)
[2024-03-13] MEDS: VANCOMYCIN HCL 1,250 MG in SODIUM CHLORIDE 0.9% 500 ML IV ONE (18:03)
[2024-03-13] MEDS: CEFEPIME 2000MG 2,000 MG/20 ML SYR IV STA (18:03)
[2024-03-13 18:47] LABS: Potassium 3.8 mmol/L (3.5-5.1)
[2024-03-13 18:47] LABS: Adenovirus PCR Not Detected (NotDetected); Bordetella parapertussis PCR Not Detected (NotDetected); Bordetella pertussis PCR Not Detected (NotDetected); Chlamydia pneumoniae PCR Not Detected (NotDetected); Coronavirus 229E PCR Not Detected (NotDetected); Coronavirus CoV-2 (COVID19)PCR Not Detected (NotDetected); Coronavirus HKU1 PCR Not Detected (NotDetected); Coronavirus NL63 PCR Not Detected (NotDetected); Coronavirus OC43PCR Not Detected (NotDetected); Human Metapneumovirus PCR Not Detected (NotDetected); Influenza A PCR Not Detected (NotDetected); Influenza B PCR Not Detected (NotDetected); Mycoplasma pneumoniae PCR Not Detected (NotDetected); Parainfluenza Virus 1 PCR Not Detected (NotDetected); Parainfluenza Virus 2 PCR Not Detected (NotDetected); Parainfluenza Virus 3 PCR Not Detected (NotDetected); Parainfluenza Virus 4 PCR Not Detected (NotDetected); Respiratory Syncytial VirusPCR Not Detected (NotDetected); Rhinovirus/Enterovirus PCR Not Detected (NotDetected)
[2024-03-13] MEDS ORDERED: PHARMACIST DISCHARGE MED REC CONSULT PRN (19:50)
[2024-03-13] MEDS: LABETALOL HCL IV 5 MG/ML 20ML IV PRN (20:47)
[2024-03-13] MEDS ORDERED: GLUCAGON FOR INJ 1 MG VIAL SQ PRN (21:37)
[2024-03-13] MEDS ORDERED: CARBOHYDRATES FOR HYPOGLYCEMIA PO PRN (21:37)
[2024-03-13] MEDS ORDERED: GLUCOSE 40% GEL 15 GM TUBE PO PRN (21:37)
[2024-03-13] MEDS ORDERED: DEXTROSE 50% 50 ML SYRINGE IV PRN (21:37)
[2024-03-13] MEDS ORDERED: GLUCOSE 10 TAB/TUBE PO PRN (21:37)
--- NOTE | 2024-03-13 21:57 | Magnetic Resonance Report ---
Exam(s): MRI HEAD Without Contrast EXAM: MR Head Without Intravenous Contrast CLINICAL HISTORY: Reason for exam: slurred speech ?CVA. TECHNIQUE: Magnetic resonance images of the head/brain without intravenous contrast in multiple planes. COMPARISON: CT brain: 03/13/2024 FINDINGS: Motion-induced image degradation. Brain: There is a 1.8 x 1.0 cm dumbbell-shaped acute infarction with restricted diffusion demonstrated in the dana (series 5 image 8). There is no intraparenchymal mass, mass-effect or midline shift noted. No abnormal extra-axial fluid collections are seen. The basal cisterns are patent. Age-related moderate cerebral atrophy with widening of the extra-axial spaces and ventricular dilatation. FLAIR imaging demonstrated minimal periventricular signal hyperintensity compatible with benign white matter changes of aging. Bones/joints: Unremarkable. No acute fracture. Sinuses: Mild/moderate bilateral chronic maxillary sinusitis. No acute sinusitis. Mastoid air cells: Unremarkable as visualized. No mastoid effusion. Orbits: Unremarkable as visualized.. IMPRESSION: Acute infarction of the dana. Chronic involutional changes of the brain. . Communications: Call Doctor Stroke Electronically signed by: Nikunj Haile MD, DABR 03/13/24 21:56 PM
[2024-03-13] MEDS: CLOPIDOGREL BISULFATE 300 MG TAB PO STA (22:33)
[2024-03-13] MEDS: HEPARIN SOD 5,000 UNIT/0.5 ML VIAL SQ SCH (22:34)
[2024-03-13] MEDS: LANTUS PER UNIT CHARGE SQ SCH (22:39)
[2024-03-13] MEDS: LACTATED RINGER'S 1,000 ML IV SCH (22:53)
[2024-03-14] MEDS: ALBUT/IPRATROP 3MG/0.5MG NEB 3 ML VIAL NEB PRN (00:09)
[2024-03-14 06:11] LABS: Basophils # (auto) 0.02 K/uL (0.00-0.20); Basophils % (auto) 0.2 %; Eosinophils # (auto) 0.12 K/uL (0.00-0.50); Eosinophils % (auto) 1.3 %; Hematocrit (blood only) 28.9 % (37.0-47.0); Hemoglobin 9.8 g/dl (12.0-16.0); Immature Granulocytes # (auto) 0.05 K/uL (0.01-0.20); Immature Granulocytes % (auto) 0.5 %; Lymphocytes # (auto) 1.17 K/uL (1.20-3.40); Lymphocytes % (auto) 12.4 %; Mean Corpuscular Hemoglobin 27.8 pg (25.0-34.0); Mean Corpuscular Hgb Conc 33.9 g/dL (32.0-36.0); Mean Corpuscular Volume 81.9 fL (80.0-100.0); Mean Platelet Volume 9.6 fL (9.4-12.4); Monocytes # (auto) 0.82 K/uL (0.11-0.59); Monocytes % (auto) 8.7 %; Neutrophils # (auto) 7.29 K/uL (1.40-6.50); Neutrophils % (auto) 76.9 %; Platelet Count 213 K/uL (130-400); RDW Coefficient of Variation 13.6 % (11.5-14.5); RDW Standard Deviation 40.5 fL (36.4-46.3); Red Blood Count 3.53 M/uL (4.20-5.40); White Blood Count 9.47 K/ul (4.8-10.8)
[2024-03-14 06:22] LABS: BUN Creatinine Ratio 22.5 (10-20); Calcium 8.5 mg/dl (8.6-10.3); Chol HDL Ratio 5.9 (0-5); Potassium 3.9 mmol/L (3.5-5.1)
[2024-03-14] MEDS: AZITHROMYCIN 250 MG TAB PO SCH (07:13)
[2024-03-14 07:35] LABS: Estimated Average Glucose 246 mg/dl; Hemoglobin A1C 10.2 % (4.5-5.6)
--- NOTE | 2024-03-14 07:49 | Hospitalist Progress Note ---
Date of Service March 14, 2024 Assessment & Plan (1) Acute CVA (cerebrovascular accident): Plan: MRI demonstrated acute pontine infarct CTA head/neck with chronic stenotic changes in vertebral artery and MCA TTE pending A1c 10.2% Total cholesterol 231, LDL 129 Neurology consulted, appreciate recs: - DAPT x3 weeks, then Clopidogrel monotherapy - H/o statin induced myopathy, statin initiation deferred at present but consider trial of Rosuvastatin - Monitor BP, goal SBP<160, Losartan resumed Speech eval significant for dysphagia, VFSS scheduled for 03/16. Aspiration and reflux precautions. Requires direct supervision with all oral intake. PT/OT evals completed, recommend short-term rehab placement. (2) Pneumonia: Plan: CT chest with mild patchy opacities in right middle and lower lobes, suggestive of bronchopneumonia WBC WNL, Procal x2 negative, Biofire negative, briefly noted to be febrile overnight, afebrile since - antibiotics deferred, suspect aspiration pneumonitis Duonebs PRN for wheezing (no history of asthma/COPD) (3) Slurring of speech: (4) Recurrent falls: (5) Atrial fibrillation, permanent: Plan: Not on anticoagulation due to left atrial appendage device Rate controlled without AV rubio blocking agents (6) Uncontrolled type 2 diabetes mellitus with hyperglycemia: Plan: HbA1C 10.2 - will need close outpatient follow up for better diabetic control Lantus reduced to 10 units on admission Novolog: --Goal BSG Range: Low 110 mg/dL, High 140 mg/dL --Correction Factor: 45 mg/dL/unit --Carbohydrate ratio = 15 g/unit --BSGs ACHS if eating, q6h if npo Plan VTE Prophylaxis - heparin 5000 units SQ BID Diet - T2DM, heart healthy Disposition - PCU Admission and Anticipated Discharge Date Admission Date: March 13, 2024 Supervising Physician Co-Signing Physician Notes Attending Physician Supervision Note: I independently interviewed and examined the patient and verified the sands history and physical, reviewed labs and image studies and agree with findings and care plan noted above. Subjective At present, patient reports generalized weakness but denies focal or one-sided weakness, sensory changes, difficulty speaking or swallowing, states that the main reason her daughter brought her to the ED was recurrent falls over the past 2 weeks. She does feel like her balance has been off. Denies DEAL, changes in vision, SOB, CP. Review of Systems Review of Systems: as per HPI Physical Exam Physical Exam: General: Alert and oriented. No acute distress Cardiac: Regular rate and rhythm, no murmurs appreciated Respiratory: Lungs clear to auscultation bilaterally, No increased work of breathing Neuro: AOx3, mildly dysarthric but without word finding difficulty, 5/5 strength in all 4 extremities and symmetrical bilaterally, sensation intact. Results & Data Results & Data Vital Signs (Past 12 Hours) Vital Signs Temp Pulse Pulse Resp BP BP BP 03/14/24 07:13 59 L 03/14/24 06:55 36.5 C 51 L 20 166/65 H 03/14/24 03:00 37.8 C H 60 20 190/67 H 03/14/24 00:12 60 18 03/13/24 23:17 38.3 C H 59 L 20 185/65 H 03/13/24 23:00 59 L 03/13/24 22:05 60 175/73 H 03/13/24 20:47 60 223/65 H 03/13/24 20:45 60 223/65 H Pulse Ox O2 Del Method 03/14/24 07:13 03/14/24 06:55 94 Room Air 03/14/24 03:00 96 Room Air 03/14/24 00:12 96 Room Air 03/13/24 23:17 95 Room Air 03/13/24 23:00 03/13/24 22:05 03/13/24 20:47 03/13/24 20:45 Resident Activity Tracking Resident Involvement: Resident Care Provided Care Provided: Adult Hospital Medicine
[2024-03-14] MEDS: INSULIN ASPART PER UNIT CHARGE SC SCH (07:57)
[2024-03-14] MEDS: CLOPIDOGREL BISULFATE 75 MG TAB PO SCH (08:00)
[2024-03-14] MEDS: ASPIRIN 81 MG ECTAB PO SCH (08:00)
--- NOTE | 2024-03-14 09:33 | Neurology Consultation ---
Date of Consultation March 14, 2024 Assessment & Plan (1) Right pontine stroke: (2) VBI (vertebrobasilar insufficiency): (3) Middle cerebral artery stenosis: Plan 84-year-old female with an acute pontine infarct, extending from the anterior dana to the pontine tegmentum, fairly central although a bit more off to the right. She has been experiencing associated dysarthria and has had a few falls (drop attacks). Her strength seems fairly normal for the upper and lower limbs this morning. She may have some ataxia, however. I was unable to observe her sitting or standing. Continue with dual antiplatelet therapy, aspirin and clopidogrel for 3 weeks, after which we discontinue aspirin in favor of clopidogrel monotherapy, 75 mg/day. Because patient has a history of statin induced myopathy, would hold off on starting a statin at this time. However, I am uncertain what statin she had an intolerance to in the past. I wonder if she would tolerate a low-dose of rosuvastatin. Medical management for the identified vertebral and middle cerebral artery stenoses (antiplatelet therapy as above, consider rosuvastatin as above). Her diabetes mellitus will need improved control. May allow for permissive hypertension acutely, systolic blood pressure 140 to 160 mmHg. Should be able to restart her losartan prior to discharge. Consultations with PT/OT/speech therapy. Follow-up with results of echocardiogram. History of Present Illness Reason for Consultation: Stroke Requesting Physician: Aniya Attending Physician: Maia Le MD History of Present Illness The patient is an 84-year-old female who presented to the emergency department yesterday afternoon with a chief complaint of dysarthria upon awakening yesterday morning and several recent falls, legs gave out from her, no dizziness or presyncopal symptoms. She has been ambulating independently at baseline without use of cane or walker. She continues to endorse mild slurred speech, not aware of any difficulty with swallowing. Denies experiencing any diplopia or vertigo. No prior history of stroke or TIA, history notable for permanent atrial fibrillation, Watchman device, takes daily low-dose aspirin. History also notable for poorly controlled insulin-dependent diabetes mellitus. A CT of the head was negative for hemorrhage or acute process. CTA of the head and neck revealed multifocal stenosis at the origin of the left vertebral artery and bilateral V4 segments and bilateral cavernous portions of the internal carotid arteries as well as a high-grade stenosis of the origin of the left middle cerebral artery. A brain MRI revealed an acute pontine infarct measuring 1.8 x 1.0 cm. I did independently review these images and was able to appreciate these findings. Clopidogrel has been added to her medication regimen. She has a history of statin induced myopathy and is not prescribed a statin currently. Allergies Allergy/AdvReac Type Severity Reaction Status Date / Time ibuprofen Allergy Intermediate HANDS GO Verified 01/21/24 13:02 NUMB Penicillins Allergy Intermediate Rash Verified 01/21/24 13:02 Sulfa (Sulfonamide Allergy Unknown HAPPENED Verified 01/21/24 13:02 Antibiotics) A CHILD azithromycin AdvReac Mild Gastrointestinal Verified 01/21/24 13:02 Upset colestipol [From Colestid] AdvReac Mild "Couldn't Verified 01/21/24 13:02 Tolerate" doxycycline AdvReac Mild Gastrointestinal Verified 01/21/24 13:02 Upset ezetimibe [From Zetia] AdvReac Mild Gastrointestinal Verified 01/21/24 13:02 Upset terazosin [From Hytrin] AdvReac Mild Urinary Verified 01/21/24 13:02 Incontinence Home Medications Medication Instructions Recorded Confirmed Type acetaminophen 500 mg tablet 500 - 1,000 mg PO Q6H PRN Pain 02/12/19 03/13/24 History (Tylenol Extra Strength) aspirin 81 mg tablet,delayed 81 mg PO DAILY 02/01/21 03/13/24 History release omega-3 fatty acids-fish oil 340 1 cap PO BID #60 caps 02/01/21 03/13/24 Rx mg-1,000 mg capsule (Fish Oil) flash glucose scanning reader #1 ea 06/27/21 01/21/24 Rx (FreeStyle [place] 2 [place]) cholecalciferol (vitamin D3) 1,000 unit PO DAILY 07/12/21 03/13/24 History ascorbate calcium (vitamin C) 500 250 mg PO DAILY 09/12/21 03/13/24 History mg tablet polaprezinc (zinc carnosine) 1 tab PO BID 09/12/21 03/13/24 History blood sugar diagnostic (Contour 11/09/22 01/21/24 History Test Strips) pen needle, diabetic 32 gauge x 11/09/22 01/21/24 History 532" (BD Ultra-Fine Mery Pen Needle) losartan 100 mg tablet 100 mg PO DAILY #90 tabs 04/01/23 03/13/24 Rx flash glucose sensor (FreeStyle #2 ea 11/18/23 01/21/24 Rx Samantha 2 Sensor kit) insulin glargine 100 unit/mL (3 44 unit subcut QPM 03/13/24 03/13/24 History mL) subcutaneous pen (Lantus Solostar U-100 Insulin) insulin lispro 100 unit/mL 20 unit subcut BID 03/13/24 03/13/24 History subcutaneous pen (Humalog KwikPen (U-100) Insulin) Patient History Medical History (Updated 03/14/24 @ 09:29 by Artur Call MD) Foot pain Dyspnea Pleural effusion Atrial fibrillation Surgical History No significant past surgical history Family History Other Family history non-contributory Social History Smoking Status: Never smoker Hx Alcohol Use: No Hx Substance Use: No Preferred Language: Jamaican Communication Ability: Effective 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: No Beliefs That Will Affect Care: None Current Living Situation: Spouse Feels Safe at Home: Yes Safety Concerns: Feels Safe At This Time Assistive Devices: None Review of Systems Constitutional: no fever and no chills Eyes: no blind spots and no diplopia Ear, Nose, Mouth, Throat: no hearing loss Respiratory: no cough and no dyspnea Cardiovascular: no chest pain and no palpitations Gastrointestinal: no nausea and no vomiting Genitourinary: no dysuria Musculoskeletal: no myalgia and no muscle weakness Integumentary: no rash and no lesions Neurologic: as per Subjective / HPI Psychiatric: no depression and no anxiety Hematologic / Lymphatic: no easy bleeding and no easy bruising Exam (Neuro) Constitutional: well developed; no acute distress Eyes: normal visual mcgee by confrontation, PERRL and EOM intact bilaterally; no nystagmus Neurologic: Oriented to:: Person, Place and Time Memory: Short Term Intact and Remote Intact Attention: Span Intact and Concentration Intact Speech Fluency: Dysarthria Speech Aphasia: negative Aphasia Fund of Knowledge: Current Events, Past History and Vocabulary Cranial Nerves: Normal II, III, IV, , V, VII, VIII, IX, X, XI and XII Motor Strength: Normal Lower Extremities and Normal Upper Extremities Motor Tone: Normal Lower Extremities and Normal Upper Extremities Muscle Bulk/Involuntary Movements: No Involuntary Movements; negative Muscle Atrophy Sensation: Light Touch Intact, Pain/Temperature Intact, Vibration Intact and Proprioception Intact Coordination: negative Dysdiadochokinesia, Finger-Nose Abnormal or Heel-[place] Abnormal Deep Tendon Reflexes: Rt Triceps: 2+, Lt Triceps: 2+, Rt Biceps: 2+, Lt Biceps: 2+, Rt Brachioradialis: 2+, Lt Brachioradialis: 2+, Rt Patellar: 2+, Lt Patellar: 2+, Rt Ankle: 1+ and Lt Ankle: 1+ Special Tests: Babinski Present Details: Mild dysmetria noted with [id number] bilaterally Results & Data Vital Signs (Past 12 Hours) Vital Signs Temp Pulse Pulse Resp BP BP BP 03/14/24 07:13 59 L 03/14/24 06:55 36.5 C 51 L 20 166/65 H 03/14/24 03:00 37.8 C H 60 20 190/67 H 03/14/24 00:12 60 18 03/13/24 23:17 38.3 C H 59 L 20 185/65 H 03/13/24 23:00 59 L 03/13/24 22:05 60 175/73 H Pulse Ox O2 Del Method 03/14/24 07:13 03/14/24 06:55 94 Room Air 03/14/24 03:00 96 Room Air 03/14/24 00:12 96 Room Air 03/13/24 23:17 95 Room Air 03/13/24 23:00 03/13/24 22:05 Laboratory Results WBC 9.47, hemoglobin 9.8, hematocrit 28.9, platelet count 213, sodium 137, potassium 3.9, BUN 23, creatinine 1.02, glucose 212, hemoglobin A1c 10.2, calcium 8.5, magnesium 1.7, triglycerides 231, cholesterol 211, LDL 129, VLDL 49, HDL 36 Diagnostic Findings An electrocardiogram revealed a junctional rhythm, left ventricular hypertrophy with repolarization abnormality Coding Level of Care Code 36184 INT INP/OBS CARE 375MIN Diagnoses Right pontine stroke I63.50 VBI (vertebrobasilar insufficiency) G45.0 Middle cerebral artery stenosis I66.09 Time Spent (min) 90 Comment Total time includes patient contact, chart review, counseling, note preparation
[2024-03-14] MEDS: LOSARTAN POTASSIUM 50 MG TAB PO SCH (12:58)
--- NOTE | 2024-03-14 17:42 | XCELERA ---
[id number]
[2024-03-14] MEDS: hydrALAZINE HCL 20 MG/ML VIAL IV STA ×2 (20:55→22:30)
[2024-03-15] MEDS: ENALAPRILAT 2.5 MG in DEXTROSE 5% 25 ML IV ONE (00:14)
[2024-03-15 05:58] LABS: Hematocrit (blood only) 33.6 % (37.0-47.0); Hemoglobin 11.2 g/dl (12.0-16.0); Mean Corpuscular Hemoglobin 27.4 pg (25.0-34.0); Mean Corpuscular Hgb Conc 33.3 g/dL (32.0-36.0); Mean Corpuscular Volume 82.2 fL (80.0-100.0); Mean Platelet Volume 9.9 fL (9.4-12.4); Platelet Count 240 K/uL (130-400); RDW Coefficient of Variation 13.4 % (11.5-14.5); RDW Standard Deviation 39.8 fL (36.4-46.3); Red Blood Count 4.09 M/uL (4.20-5.40); White Blood Count 9.47 K/ul (4.8-10.8)
[2024-03-15 06:20] LABS: Anion Gap 11 (3-11); BUN Creatinine Ratio 15.4 (10-20); Blood Urea Nitrogen 14 mg/dl (6-23); Calcium 9.1 mg/dl (8.6-10.3); Carbon Dioxide 21 mmol/L (21-32); Chloride 102 mmol/L (98-107); Creatinine Clr Calc Pharmacy 38.3 ml/min; Glucose 174 mg/dl (70-99(Fasting)); Sodium 134 mmol/L (136-145)
--- NOTE | 2024-03-15 07:10 | Hospitalist Progress Note ---
Date of Service March 15, 2024 Assessment & Plan (1) Acute CVA (cerebrovascular accident): Plan: MRI demonstrated acute pontine infarct CTA head/neck with chronic stenotic changes in vertebral artery and MCA TTE with severe LA dilation but no evidence of interatrial shunting, otherwise largely unremarkable A1c 10.2% Total cholesterol 231, LDL 129 Neurology consulted, appreciate recs: - DAPT x3 weeks, then Clopidogrel monotherapy - H/o statin induced myopathy, statin initiation deferred at present but consider trial of Rosuvastatin. Per outpatient cardiology note, patient has refused both statin and PCSK9 inhibitor therapy. - Monitor BP, goal SBP<160, Losartan increased to previous home dose of 100mg, Amlodipine 10mg added. Speech eval significant for dysphagia, VFSS scheduled for 03/16. Aspiration and reflux precautions. Requires direct supervision with all oral intake. PT/OT evals completed, recommend short-term rehab placement. (2) Pneumonia: Plan: CT chest with mild patchy opacities in right middle and lower lobes, suggestive of bronchopneumonia WBC WNL, Procal x2 negative, Biofire negative, afebrile - antibiotics deferred, suspect aspiration pneumonitis Duonebs PRN for wheezing (no history of asthma/COPD) (3) Slurring of speech: (4) Recurrent falls: (5) Atrial fibrillation, permanent: Plan: Not on anticoagulation due to left atrial appendage device Rate controlled without AV rubio blocking agents (6) Uncontrolled type 2 diabetes mellitus with hyperglycemia: Plan: HbA1C 10.2 - will need close outpatient follow up for better diabetic control Lantus reduced to 10 units on admission Novolog: --Goal BSG Range: Low 110 mg/dL, High 140 mg/dL --Correction Factor: 45 mg/dL/unit --Carbohydrate ratio = 15 g/unit --BSGs ACHS if eating, q6h if npo Plan Urinary Retention: - Patient straight cathed x1 overnight, has refused since - Most recent bladder scan with post-void residual volume of 500mL - Obtain KUB to r/o constipation as cause for urinary retention - Discussed concerns related to urinary retention with patient, she states that she is amenable to cath if still retaining after next spontaneous voiding trial. VTE Prophylaxis - heparin 5000 units SQ BID Diet - T2DM, heart healthy Disposition - PCU Admission and Anticipated Discharge Date Admission Date: March 13, 2024 Supervising Physician Co-Signing Physician Notes Attending Physician Supervision Note: I independently interviewed and examined the patient and verified the sands history and physical, reviewed labs and image studies and agree with findings and care plan noted above. BP elevations likely from urinary retentions - meds titrated as above. Urinary retention likely from pontine stroke - Pontine micturition center involvement. place [place] and assess for voiding trial at Rehab facility. Subjective Overnight course significant for persistently elevated blood pressure, largely refractory to IV Hydralazine 10mg x1 + Enalaprilat 2.5mg. Today, patient reports continued generalized weakness but denies focal or one-sided weakness. Endorses feeling off balance when she worked with PT/OT. Denies DEAL, changes in vision, SOB, CP. Review of Systems Review of Systems: as per HPI Physical Exam Physical Exam: General: Alert and oriented. No acute distress Cardiac: +irregularly irregular, no murmurs appreciated Respiratory: Lungs clear to auscultation bilaterally, No increased work of breathing Neuro: AOx3, mildly dysarthric but without word finding difficulty, 5/5 strength in all 4 extremities and symmetrical bilaterally, sensation intact. Results & Data Results & Data Vital Signs (Past 12 Hours) Vital Signs Temp Pulse Resp BP Pulse Ox O2 Del Method 03/15/24 04:25 37.8 C H 74 18 181/68 H 93 Room Air 03/15/24 01:29 81 180/63 H 03/15/24 00:40 37.5 C 76 20 206/69 H 98 Room Air 03/15/24 00:31 73 184/64 H 03/15/24 00:29 78 184/64 H 03/14/24 23:09 79 215/79 H 03/14/24 22:54 203/73 H 03/14/24 21:52 73 209/62 H 03/14/24 21:34 61 205/47 H 03/14/24 20:31 45 L 203/47 H 03/14/24 20:23 36.9 C 45 L 17 191/72 H 97 Room Air Resident Activity Tracking Resident Involvement: Resident Care Provided Care Provided: Adult Hospital Medicine
[2024-03-15] MEDS: amLODIPine BESYLATE 5 MG TAB PO ONE ×2 (07:53→11:06)
[2024-03-15] MEDS: LOSARTAN POTASSIUM 50 MG TAB PO STA (11:05)
[2024-03-15] MEDS: ACETAMINOPHEN 500 MG TAB PO PRN (11:07)
--- NOTE | 2024-03-15 14:14 | XRay Report ---
XR KUB/Abdomen 1 view CLINICAL HISTORY: urinary retention, evaluate for high stool burden TECHNIQUE: 1 view of the abdomen was obtained. Comparison: None available at the time of this dictation. FINDINGS: Lung bases are unremarkable. Degenerative changes are seen in the visualized skeleton. The bowel gas pattern is nonobstructive. A moderate amount of stool is noted within the large bowel. IMPRESSION: Moderate stool burden without evidence of fecal impaction. ACT 112: Negative or not required by law. Electronically signed by: Dayron Hannah M.D. 03/15/2024 2:11 PM
[2024-03-16] MEDS ORDERED: Nursing to Pharmacy Communication SCH (06:00)
[2024-03-16] MEDS: INSULIN ASPART PER UNIT CHARGE SC SCH ×2 (06:03→12:01)
[2024-03-16 06:25] LABS: Hematocrit (blood only) 30.6 % (37.0-47.0); Hemoglobin 10.2 g/dl (12.0-16.0); Mean Corpuscular Hemoglobin 27.5 pg (25.0-34.0); Mean Corpuscular Hgb Conc 33.3 g/dL (32.0-36.0); Mean Corpuscular Volume 82.5 fL (80.0-100.0); Mean Platelet Volume 9.8 fL (9.4-12.4); Platelet Count 226 K/uL (130-400); RDW Coefficient of Variation 13.2 % (11.5-14.5); RDW Standard Deviation 39.8 fL (36.4-46.3); Red Blood Count 3.71 M/uL (4.20-5.40); White Blood Count 6.94 K/ul (4.8-10.8)
[2024-03-16 06:48] LABS: Calcium 8.7 mg/dl (8.6-10.3); Creatinine Clr Calc Pharmacy 34.7 ml/min; Potassium 3.6 mmol/L (3.5-5.1)
--- NOTE | 2024-03-16 06:54 | Hospitalist Progress Note ---
Date of Service March 16, 2024 Assessment & Plan (1) Acute CVA (cerebrovascular accident): Plan: MRI demonstrated acute pontine infarct CTA head/neck with chronic stenotic changes in vertebral artery and MCA TTE with severe LA dilation but no evidence of interatrial shunting, otherwise largely unremarkable A1c 10.2% Total cholesterol 231, LDL 129 Neurology consulted, appreciate recs: - DAPT x3 weeks, then Clopidogrel monotherapy - H/o statin induced myopathy, statin initiation deferred at present but consider trial of Rosuvastatin. Per outpatient cardiology note, patient has refused both statin and PCSK9 inhibitor therapy, will revisit topic of lipid lowering therapy for secondary prevention. - Monitor BP, goal SBP~160, continue Losartan 100mg, continue Amlodipine 10mg daily Speech eval and VFSS suggest oropharyngeal dysphagia. Aspiration and reflux precautions. Recommended to have direct supervision with oral intake. PT/OT evals completed, recommend short-term rehab placement. CM following re: placement needs (2) Pneumonia: Plan: CT chest with mild patchy opacities in right middle and lower lobes, suggestive of bronchopneumonia WBC WNL, Procal x2 negative, Biofire negative, afebrile - antibiotics deferred, suspect aspiration pneumonitis Duonebs PRN for wheezing (no history of asthma/COPD) (3) Slurring of speech: (4) Recurrent falls: (5) Atrial fibrillation, permanent: Plan: Not on anticoagulation due to left atrial appendage device Rate controlled without AV rubio blocking agents (6) Uncontrolled type 2 diabetes mellitus with hyperglycemia: Plan: HbA1C 10.2 - will need close outpatient follow up for better diabetic control Lantus reduced to 10 units on admission Novolog: --Goal BSG Range: Low 110 mg/dL, High 140 mg/dL --Correction Factor: 45 mg/dL/unit --Carbohydrate ratio = 15 g/unit --BSGs ACHS if eating, q6h if npo Plan Urinary Retention: - Johnson catheter in place - KUB 10: moderate stool burden, no evidence of fecal impaction - Possibly secondary to pontine stroke affecting pontine micturition center, in which case would expect spontaneous resolution. Recommend urinary catheter following by spontaneous voiding trial if the next few days. VTE Prophylaxis - heparin 5000 units SQ BID Diet - T2DM, heart healthy Disposition - PCU Admission and Anticipated Discharge Date Admission Date: March 13, 2024 Supervising Physician Co-Signing Physician Notes I personally examined the patient and verified all sands points of history and exam, discussed case, and agree with decision making with Dr Edge feeling OK. wonders how quickly she'll get better. tried to give honest answe rs in the context of significant CVA. vitals noted nad heent nc at mmm breathing unlabored no accessory muscles good effort skin no rashes no pallor or icterus pontine CVA -for rehab -urinary sx likely relate - cath drainage for now; check urine Cx for completeness -secondary risk reduction as best as she'll allow. today tried to broach subject of glycemic control being critical - and either diet change or increase in meds would be needed. also tried to discuss same with reconsidering statin for lipids/vascular risk reduction for rehab once bed available Subjective Overnight BP moderately elevated with systolic 160s-180s. Denies DEAL, changes in vision, SOB, CP. Review of Systems Review of Systems: as per HPI Physical Exam Physical Exam: General: Alert and oriented. No acute distress Cardiac: +irregularly irregular, no murmurs appreciated Respiratory: Lungs clear to auscultation bilaterally, No increased work of breathing Neuro: AOx3, mildly dysarthric but without word finding difficulty, 5/5 strength in all 4 extremities and symmetrical bilaterally, sensation intact. Results & Data Results & Data Vital Signs (Past 12 Hours) Vital Signs Temp Pulse Resp BP Pulse Ox O2 Del Method 03/16/24 03:12 38.2 C H 79 18 164/69 H 95 Room Air 03/15/24 22:57 37.3 C 52 L 18 166/72 H 96 Room Air 03/15/24 19:49 37.4 C 49 L 18 186/66 H 98 Room Air Resident Activity Tracking Resident Involvement: Resident Care Provided Care Provided: Adult Hospital Medicine
[2024-03-16] MEDS: amLODIPine BESYLATE 5 MG TAB PO SCH (10:20)
[2024-03-16] MEDS: LOSARTAN POTASSIUM 50 MG TAB PO SCH (10:20)
--- NOTE | 2024-03-16 10:45 | Fluoroscopy Report ---
MODIFIED BARIUM SWALLOW CLINICAL HISTORY: r/o aspiration COMPARISON STUDY: None. FLUOROSCOPY TIME: 1.55 minutes. Ka,r: 17.3 mGy. TECHNIQUE: A modified barium swallow was performed in conjunction with Speech Pathology. The patient ingested varying consistencies of barium containing material. Video fluoroscopy was performed. FINDINGS: Trace tracheal aspiration was identified with sequential swallows of thin liquids. There wa s no aspiration with sips of thin liquids. No aspiration was identified with nectar thick liquids, pu dding or cracker and pudding consistencies. Epiglottic inversion was normal. Laryngeal elevation was normal. Moderate esophageal dysmotility was noted. IMPRESSION: 1. Trace tracheal aspiration with sequential swallows of thin liquids. No aspiration with remainder o f the consistencies. 2. Full recommendations by Speech pathology to follow. ACT 112: Negative or not required by law. Electronically signed by: Acosta Valdez M.D. 03/16/2024 10:44 AM
--- NOTE | 2024-03-16 10:45 | Pharmacy Report ---
- Date of Service March 16, 2024 - Pharmacy CVA/TIA Medication Review Medications to Prevent Stroke handout has been added to the patients discharge packet. Antiplatelet(s) * aspirin 81mg po daily and plavix 75mg daily x 3 weeks, then monotherapy of plavix 75mg daily Cholesterol * High intensity statin deferred due to age >75 and history of statin induced myopathy. Per hospitalist note--patient has refused bothe statin and PSCK9 inhibitor therapy. DVT Prophylaxis * Heparin SQ Therapeutic Anticoagulation * Hx Afib/Aflutter noted, but not on anticoagulation per Dr. Le due to left atrial appendage device. Type 2 Diabetes * Patient has T2DM, but per the hospitalist, a diabetes medication with proven CVD benefit will be deferred to their outpatient provider due to familiarity with risks/benefits of such therapies. "Medications to prevent stroke" handout has already been added to the patient's discharge packet, which instructs the patient to follow up with their outpatient provider to evaluate which diabetes medication with proven CVD benefit is best for them
--- NOTE | 2024-03-16 17:42 | Billing Data ---
Date of Service March 16, 2024 Coding Level of Care Code 92815 SUB INP/OBS CARE
--- NOTE | 2024-03-16 17:43 | Billing Data ---
Date of Service March 16, 2024 Coding Level of Care Code 96529 SUB INP/OBS CARE
[2024-03-17 06:27] LABS: Hematocrit (blood only) 30.5 % (37.0-47.0); Hemoglobin 10.3 g/dl (12.0-16.0); Mean Corpuscular Hemoglobin 27.8 pg (25.0-34.0); Mean Corpuscular Hgb Conc 33.8 g/dL (32.0-36.0); Mean Corpuscular Volume 82.2 fL (80.0-100.0); Mean Platelet Volume 9.8 fL (9.4-12.4); Platelet Count 245 K/uL (130-400); RDW Coefficient of Variation 12.9 % (11.5-14.5); Red Blood Count 3.71 M/uL (4.20-5.40); White Blood Count 5.69 K/ul (4.8-10.8)
[2024-03-17 06:48] LABS: BUN Creatinine Ratio 22.3 (10-20); Calcium 8.6 mg/dl (8.6-10.3); Potassium 3.6 mmol/L (3.5-5.1)
--- NOTE | 2024-03-17 06:49 | Hospitalist Progress Note ---
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 Per outpatient cardiology note, patient has refused both statin and PCSK9 inhibitor therapy, continues to refuse - recommend continued discussion on outpatient follow up. - BP improving, continue Losartan 100mg, continue Amlodipine 10mg daily Speech eval and VFSS suggest oropharyngeal dysphagia. Aspiration and reflux precautions. Recommended to have direct supervision with oral intake. PT/OT evals completed, recommend short-term rehab placement. CM following re: placement needs (2) Pneumonia: Plan: CT chest with mild patchy opacities in right middle and lower lobes, suggestive of bronchopneumonia WBC WNL, Procal x2 negative, Biofire negative, afebrile - antibiotics deferred, suspect aspiration pneumonitis Duonebs PRN for wheezing (no history of asthma/COPD) (3) Slurring of speech: (4) Recurrent falls: (5) Atrial fibrillation, permanent: Plan: Not on anticoagulation due to left atrial appendage device Rate controlled without AV rubio blocking agents (6) Uncontrolled type 2 diabetes mellitus with hyperglycemia: Plan: HbA1C 10.2 - will need close outpatient follow up for better diabetic control Lantus reduced to 10 units on admission Novolog: --Goal BSG Range: Low 110 mg/dL, High 140 mg/dL --Correction Factor: 45 mg/dL/unit --Carbohydrate ratio = 15 g/unit --BSGs ACHS if eating, q6h if npo Plan Urinary Retention: - Johnson catheter in place - KUB 10: moderate stool burden, no evidence of fecal impaction - Possibly secondary to pontine stroke affecting pontine micturition center, in which case would expect spontaneous resolution. Recommend urinary catheter followed by spontaneous voiding trial in the next few days. VTE Prophylaxis - heparin 5000 units SQ BID Diet - T2DM, heart healthy Disposition - Med/surg Admission and Anticipated Discharge Date Admission Date: March 13, 2024 Supervising Physician Co-Signing Physician Notes I personally examined the patient and verified all sands points of history and exam, discussed case, and agree with decision making with Dr Edge did pretty well with therapy. awaiting rehab. discussed lipid and sugar management vitals noted nad heent nc at mmm breathing unlabored no accessory muscles good effort skin no rashes no pallor or icterus pontine CVA -for rehab -urinary sx likely relate to same - cath drainage for now; checking urine Cx for completeness but no growth noted thus far and low suspicion for UTI -secondary risk reduction as best as she'll allow. discussed more in depth today - from sugar standpoint discussed that she currently is showing very good control on less insulin showing how much diet can immediately impact sugar control - and that if she doesn't want to change diet at least she will need to be on more insulin so as to protect herself as best as possible from further hyperglycemia mediated microvascular ischemia; lipids she gave fairly incongruous answers on what she was actually on and for now long - relating that she was on statins for 30 years and they caused leg cramps, but then also relating that she started getting leg cramps around age 32 (and statins didn't get approved in the [place] until the late 80's), and also separately but incongruously related about being on them for 30 years but also only being on them in the 90's. was unclear what statins she was actually on - overall situation quite incongruous and far more consistent with pt having decided that she would not want to be on one for any reason. discussed that she does have capacity and has the right to make her own decisions, but that also when it comes to secondary risk reduction from CVA statins carry significant weight and she is quite likely exposing herself to more risk without trying again. also discussed that PCSK9 medications have a very different mechanism of action so statin related ADRs would not be relevant - she noted she would at least consider one of those. for rehab once bed available Subjective No acute overnight events. Denies DEAL, changes in vision, SOB, CP. Discussed treatment of HLD at length, patient expresses that she was on statin medication for close to 30 years and endorses LE myalgias as a result. Also discussed possibility of PCSK9 inhibitors, to which she also expresses strong opposition but is unable to explain why. Review of Systems Review of Systems: as per HPI Physical Exam Physical Exam: General: Alert and oriented. No acute distress Cardiac: +irregularly irregular, no murmurs appreciated Respiratory: Lungs clear to auscultation bilaterally, No increased work of breathing Neuro: AOx3, mildly dysarthric but without word finding difficulty. Results & Data Results & Data Vital Signs (Past 12 Hours) Vital Signs Temp Pulse Resp BP Pulse Ox O2 Del Method 03/17/24 03:28 37.0 C 60 18 171/79 H 94 Room Air 03/16/24 22:35 36.6 C 45 L 18 145/65 H 96 Room Air 03/16/24 19:51 36.6 C 47 L 18 141/51 H 95 Room Air Resident Activity Tracking Resident Involvement: Resident Care Provided Care Provided: Adult Hospital Medicine
--- NOTE | 2024-03-17 13:08 | Billing Data ---
Date of Service March 17, 2024 Coding Level of Care Code 10062 SUB INP/OBS CARE
--- NOTE | 2024-03-17 22:53 | Electrocardiogram Report ---
Test Reason : Blood Pressure : */* mmHG Vent. Rate : 46 BPM Atrial Rate : * BPM P-R Int : * ms QRS Dur : 80 ms QT Int : 474 ms P-R-T Axes : * 23 162 degrees QTcB Int : 414 ms Probable Atrial flutter with slow ventricular response Left ventricular hypertrophy with repolarization abnormality Abnormal ECG When compared with ECG of 06-Apr-2021 16:26, T wave inversion now evident in Lateral leads Confirmed by José Miguel Black ([id number]) on 03/17/2024 10:52:51 PM Referred By: REFERRED SELF Confirmed By: José Miguel Black
--- NOTE | 2024-03-18 07:33 | Hospitalist Progress Note ---
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 Per outpatient cardiology note, patient has refused both statin and PCSK9 inhibitor therapy, continues to refuse - recommend continued discussion on outpatient follow up. - BP improving, continue Losartan 100mg, continue Amlodipine 10mg daily Speech eval and VFSS suggest oropharyngeal dysphagia. Aspiration and reflux precautions. Recommended to have direct supervision with oral intake. PT/OT evals completed, recommend short-term rehab placement. CM following re: placement needs (2) Pneumonia: Plan: CT chest with mild patchy opacities in right middle and lower lobes, suggestive of bronchopneumonia WBC WNL, Procal x2 negative, Biofire negative, afebrile - antibiotics deferred, suspect aspiration pneumonitis Duonebs PRN for wheezing (no history of asthma/COPD) (3) Slurring of speech: (4) Recurrent falls: (5) Atrial fibrillation, permanent: Plan: Not on anticoagulation due to left atrial appendage device Rate controlled without AV rubio blocking agents (6) Uncontrolled type 2 diabetes mellitus with hyperglycemia: Plan: HbA1C 10.2 - will need close outpatient follow up for better diabetic control Lantus reduced to 10 units on admission Novolog: --Goal BSG Range: Low 110 mg/dL, High 140 mg/dL --Correction Factor: 45 mg/dL/unit --Carbohydrate ratio = 15 g/unit --BSGs ACHS if eating, q6h if npo Plan Urinary Retention: - Johnson catheter in place - KUB 03/15: moderate stool burden, no evidence of fecal impaction - Possibly secondary to pontine stroke affecting pontine micturition center, in which case would expect spontaneous resolution. Recommend urinary catheter followed by spontaneous voiding trial in the next few days. VTE Prophylaxis - heparin 5000 units SQ BID Diet - T2DM, heart healthy Disposition - Med/surg Admission and Anticipated Discharge Date Admission Date: March 13, 2024 Subjective No acute overnight events. Denies DEAL, changes in vision, SOB, CP. Discussed treatment of HLD at length, patient expresses that she was on statin medication for close to 30 years and endorses LE myalgias as a result. Also discussed possibility of PCSK9 inhibitors, to which she also expresses strong opposition b ut is unable to explain why. Review of Systems Review of Systems: as per HPI Physical Exam Physical Exam: General: Alert and oriented. No acute distress Cardiac: +irregularly irregular, no murmurs appreciated Respiratory: Lungs clear to auscultation bilaterally, No increased work of breathing Neuro: AOx3, mildly dysarthric but without word finding difficulty. Results & Data Results & Data Vital Signs (Past 12 Hours) Vital Signs Temp Pulse Resp BP Pulse Ox O2 Del Method 03/18/24 04:30 37.1 C 77 16 156/69 H 97 Room Air 03/17/24 22:43 37.2 C 55 L 18 151/50 H 96 Room Air 03/17/24 20:11 36.8 C 65 18 156/70 H 97 Room Air
--- NOTE | 2024-03-18 11:00 | Discharge Summary ---
Date of Service March 18, 2024 Admission HPI Per Admitting Provider Anna Stark is an 83 year old female who presents to the ER with slurred speech. She reports her symptoms really started on February 24 and has been generally feeling not her normal self since then but difficult for her to say what is wrong. She notes she fell on that day and her was there to pick her up. She feels she is falling as she is losing her balance. No chest pain, shortness of breath or dizziness prior to falling. [place] and was transported here by her daughter for her upcoming birthday. Her daughter notes she fell at her house 2 days ago at 4am in the morning but was able to get herself up but fell again at [facility] yesterday. She notes upper right back pain since her initial fall on February 24. She is unclear on the time line but has also been short of breath and wheezing for the last 5 days. She denies any history of asthma, COPD or requiring inhalers in the past. No fever, chills, nasal congestion or sinus pain. Associated mild non productive cough. She denies coughing or choking after eating but had a coughing spell after drinking water from a straw when being seen. She has a very dry mouth on exam and notes this has been present since yesterday but she feels she is eating and drinking normally. No one sided weakness, change in sensation, vision or hearing. Her daughter noticed some slurred, garbled speech this morning which promted visit to [facility] and referral to the ER. Prior to these recent falls she falls 1-2 times a year and uses no aids for ambulation at baseline. She denies any prior stroke or heart attack but has uncontrolled diabetes, peripheral artery disease and hypertension. Admission Exam Per Admitting Provider Constitutional: WD/WN, vitals as above Eyes: PERRL, conjunctivae normal, anicteric sclerae ENMT: Mouth: + dry oral mucous membranes Respiratory: normal respiratory effort; no respiratory distress Auscultation: + crackles (coarse bibasal) and + wheezes (mild expiratory); breath sounds present, no diminished lung sounds, no rales and no rhonchi Cardiovascular: Rate/Rhythm: regular rate and + irregularly irregular Heart Sounds: no murmur Extremities: normal capillary refill; no calf tenderness and no pedal edema Gastrointestinal (Abdomen): normal bowel sounds, soft, nontender, no hepatosplenomegaly Musculoskeletal: no cyanosis or clubbing, extremities motor strength 5/5 Skin: no rashes, warm and dry Neurologic: moves all extremities and awake; no focal motor deficits and not confused Speech / Cognition: normal speech Motor/Sensory: + pronator drift (right, notable rotator cuff pathology on imaging this side); no tremor, normal movement and no sensory deficit Cranial Nerves: PERRL, EOM intact bilaterally, normal facial strength, tongue midline, able to rotate head bilaterally, able to elevate shoulders bilaterally, no nystagmus and symmetric palate elevation Double Spindle Shaper Operator rdination: normal [id number] test (equal b/l) Psychiatric: A+Ox3, euthymic affect Genitourinary: no CVA tenderness Principal Diagnosis Acute stroke Discharge Exam General: Alert and oriented. No acute distress Cardiac: +irregularly irregular, no murmurs appreciated Respiratory: Lungs clear to auscultation bilaterally, No increased work of breathing Neuro: AOx3, mildly dysarthric but without word finding difficulty. Discharge Data Allergies Allergy/AdvReac Type Severity Reaction Status Date / Time ibuprofen Allergy Intermediate HANDS GO Verified 01/21/24 13:02 NUMB Penicillins Allergy Intermediate Rash Verified 01/21/24 13:02 Sulfa (Sulfonamide Allergy Unknown HAPPENED Verified 01/21/24 13:02 Antibiotics) A CHILD azithromycin AdvReac Mild Gastrointestinal Verified 01/21/24 13:02 Upset colestipol [From Colestid] AdvReac Mild "Couldn't Verified 01/21/24 13:02 Tolerate" doxycycline AdvReac Mild Gastrointestinal Verified 01/21/24 13:02 Upset ezetimibe [From Zetia] AdvReac Mild Gastrointestinal Verified 01/21/24 13:02 Upset terazosin [From Hytrin] AdvReac Mild Urinary Verified 01/21/24 13:02 Incontinence Consultations 03/13/24 17:25 ED Decision to Admit Stat 03/13/24 22:07 Consult Neurology Routine Ordered Studies 03/13/24 14:57 CT abd pelvis IV con only Stat CT angio head w con Stat CT angio neck with con Stat CT chest diagnostic w con Stat CT head/brain wo con Stat 03/13/24 17:12 MR brain wo con Stat 03/16/24 07:00 FL video swallow Routine Diabetes Follow up Diabetes Follow-up Needed for HgbA1c >9% Hospital Course (1) Acute CVA (cerebrovascular accident): (2) Pneumonia: (3) Slurring of speech: (4) Recurrent falls: (5) Atrial fibrillation, permanent: (6) Uncontrolled type 2 diabetes mellitus with hyperglycemia: Plan Acute CVA (cerebrovascular accident): MRI demonstrated acute pontine infarct CTA head/neck with chronic stenotic changes in vertebral artery and MCA TTE with severe LA dilation but no evidence of interatrial shunting, otherwise largely unremarkable A1c 10.2% Total cholesterol 231, LDL 129 Neurology consulted, appreciate recs: - DAPT x3 weeks (until 04/04/24), then Clopidogrel monotherapy - 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 Per outpatient cardiology note, patient has refused both statin and PCSK9 inhibitor therapy. After extensive counseling, patient continues to refuse statin initiation despite understanding of the associated risks, but is potentially amenable to PCSK9 inhibitor therapy. Recommend addressing at outpatient follow up. - BP improving, continue Losartan 100mg, continue Amlodipine 10mg daily Speech eval and VFSS suggested oropharyngeal dysphagia. Aspiration and reflux precautions. Recommended to have direct supervision with oral intake. PT/OT evals completed, recommend short-term rehab placement. Aspiration Pneumonitis: CT chest on admission with mild patchy opacities in right middle and lower lobes WBC WNL, Procal x2 negative, Biofire negative, afebrile - suspect aspiration pneumonitis Speech eval and VFSS suggest oropharyngeal dysphagia. Aspiration and reflux precautions. Recommended to have direct supervision with oral intake. Atrial fibrillation, permanent: Not on anticoagulation due to left atrial appendage device (s/p Watchman procedure) Rate controlled without AV rubio blocking agents Uncontrolled type 2 diabetes mellitus with hyperglycemia: HbA1C 10.2 - will need close outpatient follow up for better diabetic control Lantus reduced to 10 units on admission with adequate blood sugar control Urinary Retention: - Johnson catheter in place - KUB 03/15: moderate stool burden, no evidence of fecal impaction - Possibly secondary to pontine stroke affecting pontine micturition center, in which case would expect spontaneous resolution. Discharged with Johnson catheter in place, recommend spontaneous voiding trial in the next few days. Total Time Total Time Spent Total Time Spent (In Minutes): <30 Discharge Plan Discharge Items Patient Disposition: Transfer Inpatient Rehab Fac Reason For Visit: STROKE-LIKE SYMPTOMS, PNA Discharge Diagnosis: Pontine Stroke Activity: As commented below Activity Comment: activity progression as directed by PT/OT Non-emergency contact: Primary Care Provider, Quantitative Software Engineer and Neurologist Call non-emergency contact if: you have any medication questions and your symptoms worsen Follow-up/Referrals: Brad Robles MD [Primary Care Provider] - Diet: Carb Consistent or DM2 and Heart Healthy Addtl Attending Provider Instructions: Acute CVA (cerebrovascular accident): MRI demonstrated acute pontine infarct CTA head/neck with chronic stenotic changes in vertebral artery and MCA TTE with severe LA dilation but no evidence of interatrial shunting, otherwise largely unremarkable A1c 10.2% Total cholesterol 231, LDL 129 Neurology consulted, appreciate recs: - DAPT x3 weeks (until 04/04/24), then Clopidogrel monotherapy - 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 Per outpatient cardiology note, patient has refused both statin and PCSK9 inhibitor therapy. After extensive counseling, patient continues to refuse statin initiation despite understanding of the associated risks, but is potentially amenable to PCSK9 inhibitor therapy. Recommend addressing at outpatient follow up. - BP improving, continue Losartan 100mg, continue Amlodipine 10mg daily Speech eval and VFSS suggested oropharyngeal dysphagia. Aspiration and reflux precautions. Recommended to have direct supervision with oral intake. PT/OT evals completed, recommend short-term rehab placement. Aspiration Pneumonitis: CT chest on admission with mild patchy opacities in right middle and lower lobes WBC WNL, Procal x2 negative, Biofire negative, afebrile - suspect aspiration pneumonitis Speech eval and VFSS suggest oropharyngeal dysphagia. Aspiration and reflux precautions. Recommended to have direct supervision with oral intake. Atrial fibrillation, permanent: Not on anticoagulation due to left atrial appendage device (s/p Watchman procedure) Rate controlled without AV rubio blocking agents Uncontrolled type 2 diabetes mellitus with hyperglycemia: HbA1C 10.2 - will need close outpatient follow up for better diabetic control Lantus reduced to 10 units on admission Novolog: --Goal BSG Range: Low 110 mg/dL, High 140 mg/dL --Correction Factor: 45 mg/dL/unit --Carbohydrate ratio = 15 g/unit --BSGs ACHS if eating, q6h if npo Urinary Retention: - Johnson catheter in place - KUB 03/15: moderate stool burden, no evidence of fecal impaction - Possibly secondary to pontine stroke affecting pontine micturition center, in which case would expect spontaneous resolution. Discharged with Johnson catheter in place, recommend spontaneous voiding trial in the next few days. Pending Studies at Discharge: No Stand-Alone Forms: [facility], Medications to Prevent Stroke Skilled Items Patient informed of condition?: Yes DNR: No Discharge Level of Care: Acute rehab Communicable Disease: No Discharge Prognosis: Improving Lines: None Urinary Catheter: Yes Medications and DC Order Prescriptions: New clopidogrel 75 mg Tablet 75 mg PO QAM 30 Days Qty: 30 0RF amlodipine [Norvasc] 5 mg Tablet 10 mg PO QAM 30 Days Qty: 60 0RF Continued losartan 100 mg tablet 100 mg PO DAILY Qty: 90 3RF (DME) FreeStyle Samantha 2 Sensor Kit See Rx Instructions .Route Qty: 2 12RF Rx Instructions: change every 14 days aspirin 81 mg tablet,delayed release (DR/EC) 81 mg PO DAILY Fish Oil 340-1,000 mg capsule 1 cap PO BID Qty: 60 0RF cholecalciferol (vitamin D3) 1,000 unit PO DAILY polaprezinc (zinc carnosine) 1 tab PO BID (DME) FreeStyle Samantha 2 [place] Misc See Rx Instructions .Route Qty: 1 0RF Rx Instructions: As directed ascorbate calcium (vitamin C) 500 mg tablet 250 mg PO DAILY (DME) Contour Test Strips Strip See Rx Instructions .Route Rx Instructions: Test blood sugar once daily PRN (DME) pen needle, diabetic [BD Ultra-Fine Mery Pen Needle] 32 gauge x 5/32" needle See Rx Instructions .ROUTE .MEDSUPPLY Rx Instructions: Inject insulin three times daily acetaminophen [Tylenol Extra Strength] 500 mg Tablet 500 - 1,000 mg PO Q6H PRN (Reason: Pain) insulin lispro [Humalog KwikPen Insulin] 100 unit/mL insulin pen 20 unit subcut BID Rx Instructions: Inject 20 units with breakfast, 5 units with lunch and 20 units with dinner; TDD 45 units insulin glargine [Lantus Solostar U-100 Insulin] 100 unit/mL (3 mL) insulin pen 46 unit subcut QPM Discharge Orders: Discharge Order (Routine); Ordered 03/18/24 Ordered By: Benny Bennett/Other Patient Handouts: Managing Type 2 Diabetes Admission Data Admit Date/Time: 03/13/24 17:23 Attending Provider: Eren Ricardo Admit Provider: Michele Kwan Primary Care Provider: Brad Robles Other Providers: [facility]; [facility]; Kelley Packer at [place]; Michele Kwan; Artur Call Other Interventions: Discharge Summary Assessment (RN) Last Done: 03/18/24 11:43 Supervising Physician Co-Signing Physician Notes I personally examined the patient and verified all sands points of history and exam, discussed case, and agree with decision making with Dr Edge for rehab today no new issues noted vitals noted nad heent nc at mmm breathing unlabored no accessory muscles good effort skin no rashes no pallor or icterus pontine CVA -for rehab -urinary sx likely relate to same - cath drainage for now; urine culture checked for completeness although low suspicion of actual infection -> cx negative -secondary risk reduction as best as she'll allow. discussed in depth 03/17 - from sugar standpoint discussed that she currently is showing very good control on less insulin showing how much diet can immediately impact sugar control - and that if she doesn't want to change diet at least she will need to be on more insulin so as to protect herself as best as possible from further hyperglycemia mediated microvascular ischemia; lipids she gave fairly incongruous answers on what she was actually on and for now long - relating that she was on statins for 30 years and they caused leg cramps, but then also relating that she started getting leg cramps around age 32 (and statins didn't get approved in the [place] until the late 80's), and also separately but incongruously related about being on them for 30 years but also only being on them in the 90's. was unclear what statins she was actually on - overall situation quite incongruous and far more consistent with pt having decided that she would not want to be on one for any reason. discussed that she does have capacity and has the right to make her own decisions, but that also when it comes to secondary risk reduction from CVA statins carry significant weight and she is quite likely exposing herself to more risk without trying again. also discussed that PCSK9 medications have a very different mechanism of action so statin related ADRs would not be relevant - she noted she would at least consider one of those. this will obviously be a major open issue for ongoing discussion as outpt for rehab today Resident Activity Tracking Resident Involvement: Resident Care Provided Care Provided: [facility]
[2024-03-18 11:20] VITALS: BP 141/57; PULSE 60; RESP 20; TEMP 99.1; O2SAT 98
--- NOTE | 2024-03-18 15:51 | Billing Data ---
Date of Service March 18, 2024 Coding Level of Care Code 78871 IN/OBS DISCH 30 MIN/LESS
== END 2024-03-18 15:19 | DRG 64 ==
LOC: ED 14:17 → 2S 17:23 → SUATTDRO 17:23 → 2S 18:17